=== PATIENT | male | born 1955 | race Hispanic/Latino ===

== ENCOUNTER 2018-02-05 13:34 | Inpatient (IN) | payer MEDICAID, OTHER ==
[2018-02-05 13:54] VITALS: BMI 26.9
--- NOTE | 2018-02-05 15:17 | CT ---
PROCEDURE: CT HEAD WITHOUT CONTRAST. HISTORY: r/o ICH COMPARISON: None available. TECHNIQUE: Axial computed tomography images were obtained through the head/brain without intravenous contrast. Radiation dose: Total exam DLP = 898 mGy-cm. This CT exam was performed using one or more of the following dose reduction techniques: Automated exposure control, adjustment of the mA and/or kV according to patient size, and/or use of iterative reconstruction technique. FINDINGS: HEMORRHAGE: No intracranial hemorrhage. BRAIN: No mass effect or edema. No atrophy or chronic microvascular ischemic changes. VENTRICLES: Unremarkable. No hydrocephalus. CALVARIUM: Unremarkable. PARANASAL SINUSES: Unremarkable as visualized. No significant inflammatory changes. MASTOID AIR CELLS: Unremarkable as visualized. No inflammatory changes. OTHER FINDINGS: None. IMPRESSION: No acute findings
[2018-02-05 15:28] LABS: PH,URINE 6.5 (4.7-8.0); URINE BILIRUBIN NEGATIVE (NEGATIVE); URINE BLOOD NEGATIVE (NEGATIVE); URINE GLUCOSE (UA) NEGATIVE (NEGATIVE); URINE LEUKOCYTE ESTERASE NEGATIVE Leu/uL (NEGATIVE); URINE PROTEIN NEGATIVE mg/dL (<30 mg/dL); URINE UROBILINOGEN 0.2 E.U./dL (<1 E.U./dL)
[2018-02-05 15:31] LABS: BASO # 0.01 K/mm3 (0.0-2.0); BASO % 0.1 % (0.0-3.0); GRAN # 9.98 (1.4-6.5); GRAN % 89.7 % (50.0-68.0); HEMOGLOBIN 13.3 g/dL (14.0-18.0); LYMPH # 0.6 (1.2-3.4); LYMPH % 5.7 % (22.0-35.0); MEAN CELL VOLUME 96.5 fl (80.0-105.0); MEAN CORPUSCULAR HEMOGLOBIN 33.4 pg (25.0-35.0); MEAN CORPUSCULAR HGB CONC 34.6 g/dl (31.0-37.0); MEAN PLATELET VOLUME 8.5 fl (7.0-11.0); MONO # 0.5 (0.1-0.6); MONO % 4.5 % (1.0-6.0); RBC 3.98 10^6/uL (3.5-6.1); RED CELL DISTRIBUTION WIDTH 13.5 % (11.5-14.5); WHITE BLOOD COUNT 11.1 10^3/ul (4.5-11.0)
[2018-02-05 15:35] LABS: URINE APPEARANCE CLEAR (CLEAR); URINE COLOR YELLOW (YELLOW)
[2018-02-05 15:48] LABS: ALB/GLOB RATIO 1.4 (1.1-1.8); ALBUMIN 4.4 g/dL (3.0-4.8); ALT/SGPT 57 U/L (7-56); AST/SGOT 32 U/L (17-59); BLOOD UREA NITROGEN 22 mg/dL (7-21); CALCIUM 9.6 mg/dL (8.4-10.5); GFR AFRICAN-AMERICAN > 60; GFR NON-AFRICAN AMERICAN > 60
--- NOTE | 2018-02-05 15:51 | RAD ---
HISTORY: r/o infiltrate COMPARISON: No prior. FINDINGS: LUNGS: No active pulmonary disease. PLEURA: No significant pleural effusion identified, no pneumothorax apparent. CARDIOVASCULAR: No radiographic findings to suggest acute or significant cardiovascular disease. OSSEOUS STRUCTURES: No significant abnormalities. VISUALIZED UPPER ABDOMEN: Normal. OTHER FINDINGS: None. IMPRESSION: No active disease.
[2018-02-05 16:00] LABS: BARBITURATES, UR NEGATIVE (NEGATIVE); BENZODIAZEPINES, UR POSITIVE (NEGATIVE); OPIATES, UR NEGATIVE (NEGATIVE); PHENCYCLIDINE, UR NEGATIVE (NEGATIVE)
[2018-02-05 16:04] LABS: TROPONIN I < 0.01 ng/mL
[2018-02-05] MEDS ORDERED: Sodium Chloride 0.9% 1,000 ML IV ONE (16:09)
--- NOTE | 2018-02-05 17:48 | ED PDOC ---
Arrival/HPI - General Chief Complaint: Abnormal Skin Integrity Time Seen by Provider: 02/05/18 13:44 Historian: Patient - History of Present Illness Narrative History of Present Illness (Text): 02/05/18 14:45 A 62 year old male presents to the emergency department complaining of right sided facial rash and rash to neck. Patient was sent in by Dr. Miles from her office. Patient has had a rash on back of his neck and right side of face for 5- 6 days. Patient also experiencing dizziness over past couple days. Patient states rash was initially painful to touch, pain has decreased somewhat. Patient reports dizziness increases with movement. Patient denies any shortness of breath, chest pain, fever, changes in vision, abdominal pain or any other complaints at this time. Time/Duration: < week Symptom Onset: Sudden Symptom Course: Unchanged Activities at Onset: Rest Context: Home Past Medical History - Provider Review Nursing Documentation Reviewed: Yes - Infectious Disease Hx of Infectious Diseases: None - Tetanus Immunization Tetanus Immunization: Unknown - Past Medical History Past Medical History: No Previous - Cardiac Hx Cardiac Disorders: No - Pulmonary Hx Respiratory Disorders: No - Neurological Hx Neurological Disorder: No - HEENT Hx HEENT Disorder: No - Renal Hx Renal Disorder: No - Endocrine/Metabolic Hx Endocrine Disorders: No - Hematological/Oncological Hx Blood Disorders: No - Integumentary Hx Dermatological Disorder: No - Musculoskeletal/Rheumatological Hx Musculoskeletal Disorders: No - Gastrointestinal Hx Gastrointestinal Disorders: Yes - Genitourinary/Gynecological Hx Genitourinary Disorders: No - Psychiatric Hx Psychophysiologic Disorder: No Hx Substance Use: No - Past Surgical History Past Surgical History: No Previous - Anesthesia Hx Anesthesia: No - Suicidal Assessment Feels Threatened In Home Enviroment: No Family/Social History - Physician Review Nursing Documentation Reviewed: Yes Family/Social History: No Known Family HX Smoking Status: Never Smoked Hx Alcohol Use: No Hx Substance Use: No Hx Substance Use Treatment: No Allergies/Home Meds Allergies/Adverse Reactions: Allergies No Known Allergies Allergy (Verified 02/05/18 15:43) Home Medications: Home Meds Medication Instructions Recorded Confirmed Diazepam [Valium] 10 mg PO BID 02/05/18 02/05/18 Meclizine [Meclizine*] 25 mg PO TID 02/05/18 02/05/18 Prednisolone [Millipred] 10 mg PO DAILY 02/05/18 02/05/18 amLODIPine [Norvasc] 10 mg PO DAILY 02/05/18 02/05/18 oxyCODONE [oxyCODONE Immediate 5 mg PO Q8 02/05/18 02/05/18 Release Tab] Review of Systems - Physician Review All systems were reviewed & negative as marked: Yes - Review of Systems Constitutional: absent: Fevers Eyes: absent: Vision Changes Respiratory: absent: SOB Cardiovascular: absent: Chest Pain Gastrointestinal: absent: Abdominal Pain Skin: Rash (right sided facial, back of neck) Neurological: Dizziness Physical Exam Vital Signs Reviewed: Yes Vital Signs Temp Pulse Resp BP Pulse Ox 02/05/18 17:00 70 17 156/74 H 98 02/05/18 15:34 64 17 158/72 H 98 02/05/18 13:53 98.1 F 67 18 166/77 H 99 Temperature: Afebrile Blood Pressure: Normal Pulse: Regular Respiratory Rate: Normal Appearance: Positive for: Well-Appearing, Non-Toxic, Comfortable Pain Distress: None Mental Status: Positive for: Alert and Oriented X 3 - Systems Exam Head: Present: Atraumatic, Normocephalic Pupils: Present: PERRL Extroacular Muscles: Present: EOMI Conjunctiva: Present: Normal Mouth: Present: Moist Mucous Membranes Neck: Present: Normal Range of Motion, Lymphadenopathy (b/l) Respiratory/Chest: Present: Clear to Auscultation, Good Air Exchange. No: Respiratory Distress, Accessory Muscle Use Cardiovascular: Present: Regular Rate and Rhythm, Normal S1, S2. No: Murmurs Abdomen: No: Tenderness, Distention, Peritoneal Signs Back: Present: Normal Inspection Upper Extremity: Present: Normal Inspection. No: Cyanosis, Edema Lower Extremity: Present: Normal Inspection. No: Edema Neurological: Present: GCS=15, CN II-XII Intact, Speech Normal Skin: Present: Rashes (papular rash on right occipital and right side of neck; no active drainage) Psychiatric: Present: Alert, Oriented x 3, Normal Insight, Normal Concentration Medical Decision Making ED Course and Treatment: 02/05/18 14:45 Impression: A 62 year old male with right sided facial rash and rash on back of neck. Patient also with dizziness. Plan: -- EKG -- Chest X-ray -- CT head -- labs -- Urinalysis -- Reassess and disposition Prior Visits: Notes and results from previous visits were reviewed. Patient was last seen in the emergency department on 02/27/15 for evaluation of right lower back pain. Progress Notes: EKG: Ordered, reviewed, and independently interpreted the EKG. Rate : 66 BPM Rhythm : NSR Interpretation : normal axis, right bundle branch block 02/05/18 15:19 CT HEAD WITHOUT CONTRAST Creator : Talib Forman MD IMPRESSION: No acute findings. 02/05/18 15:55 Chest X-ray Creator : Steve Dykes MD IMPRESSION: No active disease. 02/05/18 15:[address] Miles, patient will be admitted to her service. Consults ordered as per Dr. Miles. - Lab Interpretations Lab Results: 02/05/18 15:10 02/05/18 15:10 Lab Results 02/05/18 15:10: Urine Opiates Screen Negative, Urine Methadone Screen Negative, Ur Barbiturates Screen Negative, Ur Phencyclidine Scrn Negative, Ur Amphetamines Screen Negative, U Benzodiazepines Scrn Positive, U Oth Cocaine Metabols Negative, U Cannabinoids Screen Negative 02/05/18 15:10: Sodium 141, Potassium 4.3, Chloride 103, Carbon Dioxide 29, Anion Gap 13, BUN 22 H, Creatinine 0.9, Est GFR ( Amer) > 60, Est GFR ( Non-Af Amer) > 60, Random Glucose 132 H, Calcium 9.6, Magnesium 2.0, Total Bilirubin 0.5, AST 32, ALT 57 H, Alkaline Phosphatase 64, Lactate Dehydrogenase 590, Total Creatine Kinase 29 L, Troponin I < 0.01, Total Protein 7.6, Albumin 4.4, Globulin 3.2, Albumin/Globulin Ratio 1.4 02/05/18 15:10: Urine Color Yellow, Urine Appearance Clear, Urine pH 6.5, Ur Specific [place] 1.020, Urine Protein Negative, Urine Glucose (UA) Negative, Urine Ketones Negative, Urine Blood Negative, Urine Nitrate Negative, Urine Bilirubin Negative, Urine Urobilinogen 0.2, Ur Leukocyte Esterase Negative 02/05/18 15:10: WBC 11.1 H, RBC 3.98, Hgb 13.3 L, Hct 38.4 L, MCV 96.5, MCH 33.4 , MCHC 34.6, RDW 13.5, Plt Count 309, MPV 8.5, Gran % 89.7 H, Lymph % (Auto) 5.7 L, [place] % (Auto) 4.5, Eos % (Auto) 0.0 L, Baso % (Auto) 0.1, Gran # 9.98 H, Lymph # (Auto) 0.6 L, [place] # (Auto) 0.5, Eos # (Auto) 0.0, Baso # (Auto) 0.01 I have reviewed the lab results: Yes - RAD Interpretation Radiology Orders: 02/05/18 14:33 HEAD W/O CONTRAST [CT] Stat CHEST PORTABLE [RAD] Stat - EKG Interpretation Interpreted by ED Physician: Yes Type: 12 lead EKG - Medication Orders Current Medication Orders: Amlodipine Besylate (Norvasc) 10 mg PO DAILY HAO Diazepam (Valium) 10 mg PO BID HAO Famotidine (Pepcid) 40 mg PO HS HAO Acyclovir 700 mg/ Sodium (Chloride) 100 mls @ 100 mls/hr IV Q8 HAO PRN Reason: Protocol Meclizine HCl (Antivert) 25 mg PO TID HAO Prednisolone [ (Millipred] 10 Mg) 10 mg PO DAILY HAO Oxycodone HCl (Oxycodone Immediate Release Tab) 5 mg PO Q8 PRN PRN Reason: Pain, moderate (4-7) Zolpidem Tartrate (Ambien) 5 mg PO HS PRN; Protocol PRN Reason: Insomnia Discontinued Medications Sodium Chloride (Sodium Chloride 0.9%) 1,000 mls @ 250 mls/hr IV .Q4H ONE Stop: 02/05/18 20:08 Last Admin: 02/05/18 16:30 Dose: 250 mls/hr eMAR Start Stop Document 02/05/18 16:30 SF (Rec: 02/05/18 16:[address] [facility] [id number]) Intravenous Solution Start Date 02/05/18 Start Time 16:30 End Date 02/05/18 End time 20:30 Total Infusion Time 240 Acyclovir 500 mg/ Sodium (Chloride) 100 mls @ 100 mls/hr IV Q8 HAO PRN Reason: Protocol Oxycodone HCl (Oxycodone Immediate Release Tab) 5 mg PO Q8 HAO - Scribe Statement The provider has reviewed the documentation as recorded by the Beth Monge Provider Scribe Attestation: All medical record entries made by the Scribe were at my direction and personally dictated by me. I have reviewed the chart and agree that the record accurately reflects my personal performance of the history, physical exam, medical decision making, and the department course for this patient. I have also personally directed, reviewed, and agree with the discharge instructions and disposition. Disposition/Present on Arrival - Present on Arrival Any Indicators Present on Arrival: Yes History of DVT/PE: No History of Uncontrolled Diabetes: No Urinary Catheter: No History of Decub. Ulcer: No History Surgical Site Infection Following: None - Disposition Have Diagnosis and Disposition been Completed?: No Diagnosis: Shingles, Vertigo Disposition: HOSPITALIZED Disposition Time: 14:30 Condition: STABLE
--- NOTE | 2018-02-05 19:09 | CARD ---
APPROVED REPORT EKG Measurement Heart [id number] <Conclusion> Normal sinus rhythm Right bundle branch block Voltage criteria for left ventricular hypertrophy Abnormal ECG
[2018-02-05] MEDS ORDERED: Acyclovir 500 MG in Sodium Chloride 0.9% 100 ML IV SCH (22:00)
[2018-02-05] MEDS ORDERED: oxyCODONE 5 mg Immediate Release Tab PO SCH (22:00)
[2018-02-06] MEDS ORDERED: DIAZEPAM 10 MG PO SCH (10:00)
[2018-02-06] MEDS: PrednisoLONE 15 mg/5 ml Oral Syrup (240 ml) PO SCH ×2 (10:16→10:29)
[2018-02-06] MEDS ORDERED: Gadodiamide 287 MG/ML VIAL (15ML) IV ONE (15:06)
--- NOTE | 2018-02-06 16:39 | MRI ---
PROCEDURE: MRI BRAIN WITH AND WITHOUT CONTRAST HISTORY: dizzy COMPARISON: None. TECHNIQUE: Multiplanar, multisequence MR images of the brain were obtained with and without intravenous contrast enhancement. 15 cc of Omniscan FINDINGS: HEMORRHAGE: None DWI: No evidence of an acute or early subacute infarction. BRAIN PARENCHYMA: No mass,mass effect or edema. Minimal microvascular changes ENHANCEMENT: No abnormal intracranial enhancement. VENTRICLES: Unremarkable. No hydrocephalus. CRANIUM: Unremarkable. ORBITS: Grossly unremarkable. PARANASAL SINUSES/MASTOIDS: Clear VASCULAR SYSTEM: Skull base flow voids intact. OTHER FINDINGS: None . IMPRESSION: Unremarkable pre and post contrast enhanced MRI of the brain.
[2018-02-06] MEDS: oxyCODONE 5 mg Immediate Release Tab PO PRN (21:37)
--- NOTE | 2018-02-06 23:32 | CON ---
DATE: HISTORY OF PRESENT ILLNESS: A 62-year-old white male with right facial rash behind the right ear and also on the neck, on the right side of the face and has been complaining of dizziness for the last few days and the rash is painful to touch and difficulty ambulating, feels very disequilibrium. PAST MEDICAL HISTORY: Colitis. ALLERGIES: NO KNOWN DRUG ALLERGY. HOME MEDICATION: Valium, meclizine, Norvasc, and oxycodone. REVIEW OF SYSTEMS: A 10-point review of system was negative except shingle behind the right ear and in the right side of the neck. PHYSICAL EXAMINATION: VITAL SIGNS: Blood pressure 166/77. HEENT: Normocephalic, atraumatic. NECK: Supple. NEUROLOGIC: Alert, awake, and oriented x3. No aphasia. Cranial nerves II through XII were tested. Pupils reactive. EOM intact. Visual field full. No facial asymmetry. Tongue midline. Motor examination, moves all the extremities equally. Toe normal. Deep tendon reflexes 1+. Both plantars are downgoing. Sensory appears intact. Cerebellar: No dysmetria on [id number] or [id number], but the patient's gait is disequilibrium. IMPRESSION AND PLAN: 1. Dizziness and vertigo, and the patient was recently seen by ENT and we will order the MRI of the head. 2. Shingles disequilibrium syndrome and we will do the MRI of the head with and without and continue present management. Continue meclizine. We will follow up. Ever Whitaker MD
--- NOTE | 2018-02-07 05:11 | CON ---
DATE: 02/06/2018 LOCATION: Patient is seen early this morning in 272, bed 2. CHIEF COMPLAINT: Dizziness for 3 days and a right facial rash times several days. HISTORY OF PRESENT ILLNESS: This is a 62-year-old male with hypertension and ulcerative colitis, on prednisone. The prednisone was discontinued 3 months ago and developed dizziness and now the rash on the right side of his face and right side of his neck. He was diagnosed with herpes zoster and admitted to the hospital. REVIEW OF SYSTEMS: Reveals the patient denies any fever. He is having headaches on and off with dizziness. No chest pain, shortness of breath. No abdominal pain, diarrhea, or constipation. No bright red blood per rectum. No melena. No blurred vision. No change in sense of smell. No hearing loss. He was seen in the emergency room by Dr. Poe who states the patient is complaining of rash. He has no other complaints actually. Not having any headaches at this time. He did have headaches earlier, which has resolved. However, he is complaining of dizziness. PAST MEDICAL HISTORY: Significant for hypertension, ulcerative colitis. PAST SURGICAL HISTORY: Noncontributory. ALLERGIES: THE PATIENT HAS NO KNOWN ALLERGIES. MEDICATIONS AT HOME: Include prednisolone, meclizine, amlodipine, diazepam, oxycodone. PHYSICAL EXAMINATION: GENERAL: Patient is in bed. VITAL SIGNS: Temperature of 98 and the blood pressure is 150/70, respiratory rate of 18 to 20, pulse of 86. HEENT: Examination of HEENT is unremarkable except for the rash that is on right side of the lower part of his face and neck. It does not involve his nose or his eardrum and it involves the lower part of his face and most of his neck on the right side. LUNGS: Clear to auscultation. HEART: Normal S1 and S2. ABDOMEN: Soft, nontender. LABORATORY EXAMINATION: Reveals a white count of 11,100, hemoglobin of 13, platelets of 309, 89% granulocytosis. Chemistries reveals a BUN of 22, creatinine of 0.9. ALT of 67. Patient had an MRI of the head, which was negative. CAT scan of the head, which was negative. Chest x-ray, which was negative. ASSESSMENT AND PLAN: A 62-year-old male with hypertension, ulcerative colitis with, 1. Herpes zoster with right facial and right neck herpes zoster. We will treat the patient with acyclovir and we will check on a human immunodeficiency virus. We will do a hepatitis profile since there is a mild elevation of the ALT and we will make further recommendations upon availability of initial results. We will follow with you. Cody Falcon MD
[2018-02-07] MEDS: oxyCODONE 5 mg Immediate Release Tab PO PRN ×2 (06:05→21:40)
[2018-02-07 07:09] LABS: HEMOGLOBIN 13.7 g/dL (14.0-18.0); MEAN CELL VOLUME 94.9 fl (80.0-105.0); MEAN CORPUSCULAR HGB CONC 34.8 g/dl (31.0-37.0); MEAN PLATELET VOLUME 8.3 fl (7.0-11.0); RBC 4.15 10^6/uL (3.5-6.1); RED CELL DISTRIBUTION WIDTH 13.4 % (11.5-14.5); WHITE BLOOD COUNT 7.9 10^3/ul (4.5-11.0)
[2018-02-07 07:16] LABS: IRON 60 ug/dL (45-180)
[2018-02-07 07:26] LABS: % IRON SATURATION 17 % (20-55); TOTAL IRON BINDING CAPACITY 355 ug/dL (261-462)
[2018-02-07 07:28] LABS: LDL CHOLESTEROL 105 mg/dL (0-129)
[2018-02-07 07:47] LABS: BLOOD UREA NITROGEN 16 mg/dL (7-21); CALCIUM 9.1 mg/dL (8.4-10.5); GFR AFRICAN-AMERICAN > 60; GFR NON-AFRICAN AMERICAN > 60; HDL CHOLESTEROL 28 mg/dL (29-60)
--- NOTE | 2018-02-07 09:47 | PN ---
DATE: 02/07/2018 SUBJECTIVE: The patient is in bed in no acute distress, was seen earlier today in room 272, bed 2. He states his dizziness is much improved and his rashes also improved. PHYSICAL EXAMINATION: VITAL SIGNS: Temperature is 98, blood pressure is 120/80, respiratory rate of 20, heart rate of 76. HEENT: Unremarkable. The rashes greatly improved, still a few active lesions. NECK: Supple. LUNGS: Have decreased breath sounds. HEART: Normal S1 and S2. ABDOMEN: Soft, nontender. LABORATORY EXAMINATION: Reveals a white count of 7.9, hemoglobin of 13, platelets of 303. BUN of 16, creatinine of 1. The patient had MRI of the head, which is reported to be negative. ASSESSMENT AND PLAN: This is a 62-year-old male who is admitted now with herpes zoster with right facial, right neck herpes zoster, which is actually greatly improved today and the patient with hypertension, ulcerative colitis. Prednisone was discontinued 3 months ago and on acyclovir, maybe able to switch to p.o. acyclovir in next 24 hours if it continues to improve at this rate. We will check on the hepatitis profile, HIV test and we will follow with you. Cody Falcon MD
--- NOTE | 2018-02-07 09:52 | HP ---
CHIEF COMPLAINT: Dizziness, feeling of passing out, rash on the neck. HISTORY OF PRESENT ILLNESS: Mr. Miller Ceja is a 62-year-old male who came to the Emergency Department complaining of right-sided facial and neck rash. Patient was seen by me in my office with persistent Dizziness and one spot of rash of the neck, right side of the face, actually started a couple of days ago and distribution looks like zoster. Patient also had experience of dizziness over the past couple of days, even his dizziness has started before the rash. The rash is painful to touch , His dizziness increased with movement. Patient is so dizzy that he has feeling of passing out. Denies any shortness of breath, chest pain, fever, chills. No vision changes, sometime he is feeling that dizziness becomes he will pass away problem. No abdominal pain. PAST MEDICAL HISTORY: Colitis; history of anemia, status post blood transfusion. ALLERGIES: PATIENT IS NOT ALLERGIC WITH ANY MEDICATIONS. HOME MEDICATIONS: Valium, meclizine, prednisone, Norvasc, oxycodone. REVIEW OF SYSTEMS: Patient is seen and examined at the bedside. He is on contact isolation, complaining about itchiness and pain in the right side of the neck and moving toward the face also. Still feeling bad and dizzy and headache. No shortness of breath. There are no vision changes. No fever. No chills. No abdominal pain. No hematuria. No hematochezia. PHYSICAL EXAMINATION: VITAL SIGNS: Temperature 98.7, pulse 72, blood pressure 148/94, respiratory rate 18. HEENT: Head: Normocephalic, atraumatic. Eyes: PERRLA. Extraocular movements are intact. Conjunctivae clear. Nose patent. Mucous membranes moist. NECK: Supple. No carotid bruits, JVD or thyromegaly. CHEST: Bilaterally symmetrical. HEART: S1 and S2 positive. LUNGS: Clear to auscultation. ABDOMEN: Soft. Bowel sounds are present. No organomegaly. EXTREMITIES: No edema. No cyanosis. NEUROLOGIC: The patient is awake and alert. Moving all four extremities, but is feeling dizzy. SKIN: Rash on the right side of the neck and is coming on the front also. Has group of vesicles at different stages. LABORATORY DATA: White blood cell 11.1, hemoglobin 13.2, hematocrit 38.5, platelets 309. Sodium 141, potassium 4.3, BUN 22, creatinine 0.9, glucose 132, AST 57. ASSESSMENT AND PLAN: Mr. Miller Ceja is a 62-year-old male with leukocytosis, anemia, hyperglycemia, abnormal liver function test. Drug screening is negative. Did CAT scan of the head and MRI of the brain, unremarkable pre and post contrast enhanced MRI of the brain. CAT scan of the head was done also, reviewed by me. Patient has zoster, is started on acyclovir antiviral, approved by Dr. Jono Johnson, [place] Ambien because of insomnia, Antivert for dizziness, amlodipine for hypertension, Pepcid for gastrointestinal prophylaxis. Patient is getting prednisolone for his colitis for long time, anxiety problem. Discussion done with patient. Gastrointestinal and deep venous thrombosis prophylaxis. Repeat labs. We will follow up. Saira Miles MD [place]
[2018-02-07] MEDS: PrednisoLONE 15 mg/5 ml Oral Syrup (240 ml) PO SCH ×2 (11:18→11:26)
[2018-02-07 13:03] LABS: HEPATITIS B SURFACE AG Negative (NEGATIVE)
[2018-02-07 13:09] LABS: HEPATITIS A IGM NEGATIVE (NEGATIVE); HEPATITIS B CORE AB NEGATIVE (NEGATIVE)
[2018-02-07 13:21] LABS: HEPATITIS C ANTIBODY NEGATIVE (NEGATIVE)
[2018-02-07 13:46] LABS: FOLATE 13.7 ng/mL
--- NOTE | 2018-02-07 17:16 | CP.PCM.CON ---
History of Present Illness - History of Present Illness History of Present Illness: pt seen and examined with agreement. The patient was admitted to [facility] for Dizziness. The patient was recently seen at the [facility] ER for dizziness and lymphadenopathy. He was then referred from the ER to an ENT in [place]. The patient was treated with Prednisone 40mg daily (pt was only able to tolerate 2 days of treatment secondary to side effects). The Patient then came to [facility] ER for inc dizziness and rash outbreak-painful right face/cheek/ear and chest. Pt has been given Acyclovir as an in patient and feels the dizziness has improved. The patient denies hearing loss or tinnitus. He denies prior hx or family hx of hearing loss/dizziness. The patient take mercaptopurine daily for IBS. Review of Systems - Constitutional Constitutional: As Per HPI - EENT Eyes: As Per HPI Ears: As Per HPI Nose/Mouth/Throat: As Per HPI - Cardiovascular Cardiovascular: As Per HPI - Respiratory Respiratory: As Per HPI - Gastrointestinal Gastrointestinal: As Per HPI - Reproductive: Male Reproductive:Male: As Per HPI - Musculoskeletal Musculoskeletal: As Per HPI - Integumentary Integumentary: As Per HPI - Neurological Neurological: As Per HPI - Psychiatric Psychiatric: As Per HPI - Endocrine Endocrine: As Per HPI - Hematologic/Lymphatic Hematologic: As Per HPI Past Patient History - Infectious Disease Hx of Infectious Diseases: None - Tetanus Immunizations Tetanus Immunization: Unknown - Past Social History Smoking Status: Never Smoked - CARDIAC Hx Cardiac Disorders: No - PULMONARY Hx Respiratory Disorders: No - NEUROLOGICAL Hx Neurological Disorder: No - HEENT Hx HEENT Problems: No - RENAL Hx Chronic Kidney Disease: No - ENDOCRINE/METABOLIC Hx Endocrine Disorders: No - HEMATOLOGICAL/ONCOLOGICAL Hx Blood Disorders: No - INTEGUMENTARY Hx Dermatological Problems: No - MUSCULOSKELETAL/RHEUMATOLOGICAL Hx Musculoskeletal Disorders: No - GASTROINTESTINAL Hx Gastrointestinal Disorders: Yes - GENITOURINARY/GYNECOLOGICAL Hx Genitourinary Disorders: No - PSYCHIATRIC Hx Psychophysiologic Disorder: No Hx Substance Use: No - SURGICAL HISTORY Hx Surgeries: No - ANESTHESIA Hx Anesthesia: No Meds Allergies/Adverse Reactions: Allergies Allergy/AdvReac Type Severity Reaction Status Date / Time No Known Allergies Allergy Verified 02/05/18 15:43 - Medications Medications: Current Medications Amlodipine Besylate (Norvasc) 10 mg PO DAILY HAO Last Admin: 02/07/18 11:17 Dose: 10 mg Diazepam (Valium) 10 mg PO BID [facility] Last Admin: 02/07/18 11:17 Dose: 10 mg Famotidine (Pepcid) 40 mg PO HS [facility] Last Admin: 02/06/18 21:33 Dose: Not Given Acyclovir 700 mg/ Sodium (Chloride) 100 mls @ 100 mls/hr IV Q8 HAO PRN Reason: Protocol Last Admin: 02/07/18 16:10 Dose: 100 mls/hr Meclizine HCl (Antivert) 25 mg PO TID [facility] Last Admin: 02/07/18 16:10 Dose: 25 mg Oxycodone HCl (Oxycodone Immediate Release Tab) 5 mg PO Q8 PRN PRN Reason: Pain, moderate (4-7) Last Admin: 02/07/18 06:05 Dose: 5 mg Prednisolone (Prednisolone Oral Soln) 10 mg PO DAILY [facility] Last Admin: 02/07/18 11:26 Dose: Not Given Zolpidem Tartrate (Ambien) 5 mg PO HS PRN; Protocol PRN Reason: Insomnia Last Admin: 02/06/18 22:07 Dose: 5 mg Physical Exam - Constitutional Appears: Well, Non-toxic - Head Exam Head Exam: ATRAUMATIC Additional comments: macular crusted over erythematous rash extending from post scalp around and involving ear/mastoid region with extension submental and right neck and chest - Eye Exam Eye Exam: EOMI, Normal appearance, PERRL Pupil Exam: NORMAL ACCOMODATION, PERRL Additional comments: nystagmus noted with extreme left gaze - ENT Exam ENT Exam: Mucous Membranes Moist, Normal Exam Additional comments: finger rub heard less from right ear than left ear (decreased hearing right) Ears: wnl Nose: mild crusting throat : mucus membranes moist no lesions/masses neck : rash as described in head exam - Neck Exam Neck exam: Positive for: Tenderness Additional comments: rash as described in head exam - Respiratory Exam Respiratory Exam: NORMAL BREATHING PATTERN - Extremities Exam Extremities exam: Positive for: normal inspection - Neurological Exam Additional comments: nystagmus with extreme gaze left. House-Brachman 1/6 bilaterally normal - Psychiatric Exam Psychiatric exam: Normal Affect, Normal Mood - Skin Additional comments: rash as described in head exam Results - Vital Signs Recent Vital Signs: Last Vital Signs Temp 98.4 F 02/07/18 11:39 Pulse 77 02/07/18 11:39 Resp 18 02/07/18 11:39 BP 150/89 02/07/18 11:39 Pulse Ox 98 02/07/18 06:00 - Labs Result Diagrams: 02/07/18 06:00 02/07/18 06:00 Labs: Laboratory Results - last 24 hr 02/07/18 02/07/18 02/07/18 06:00 06:00 06:00 WBC RBC Hgb Hct MCV MCH MCHC RDW Plt Count MPV Sodium 137 Potassium 4.1 Chloride 100 Carbon Dioxide 28 Anion Gap 14 BUN 16 Creatinine 1.0 Est GFR ( Amer) > 60 Est GFR (Non-Af Amer) > 60 Random Glucose 90 Hemoglobin A1c Calcium 9.1 Iron 60 TIBC 355 % Saturation 17 L Triglycerides 114 Cholesterol 156 LDL Cholesterol Direct 105 HDL Cholesterol 28 L Vitamin B12 > 1000 H Folate 13.7 TSH 3rd Generation Hepatitis A IgM Ab Negative Hep Bs Antigen Negative Hep B Core IgM Ab Negative Hepatitis C Antibody Negative 02/07/18 02/07/18 02/07/18 06:00 06:00 06:00 WBC 7.9 D RBC 4.15 Hgb 13.7 L Hct 39.4 L MCV 94.9 MCH 33.0 MCHC 34.8 RDW 13.4 Plt Count 303 MPV 8.3 Sodium Potassium Chloride Carbon Dioxide Anion Gap BUN Creatinine Est GFR ( Amer) Est GFR (Non-Af Amer) Random Glucose Hemoglobin A1c 4.9 Calcium Iron TIBC % Saturation Triglycerides Cholesterol LDL Cholesterol Direct HDL Cholesterol Vitamin B12 Folate TSH 3rd Generation 1.77 Hepatitis A IgM Ab Hep Bs Antigen Hep B Core IgM Ab Hepatitis C Antibody Assessment & Plan (1) Asymmetrical right sensorineural hearing loss Status: Acute (2) Shingles Status: Acute (3) Vertigo Status: Acute (4) Labyrinthine dysfunction, right ear Status: Acute - Assessment and Plan (Free Text) Plan: continue symptomatic care, acyclovir. Pt refuses steroid treatment for both dizziness and hearing loss. consider antivert/valium if needed for dizziness.
--- NOTE | 2018-02-08 03:51 | PN ---
DATE: 02/07/2018 SUBJECTIVE: The patient is a 62-year-old male. The patient is seen and examined on the bedside, sitting on isolation and having full fledged zoster rash on the right side of the neck and the right side of the face, having pain and itchiness. Still dizzy, but a little bit better. No nausea or vomiting. No fever, no chills. No hematuria or hematochezia. PHYSICAL EXAMINATION: VITAL SIGNS: Temperature 99, pulse 68, respiratory rate 18, blood pressure 147/89. HEENT: Head normocephalic, atraumatic. Eyes PERRLA. Extraocular muscles intact. Conjunctivae clear. Nose patent. Mucous membrane moist. NECK: Supple. No carotid bruit, but having rash on the right side of the neck and right side of the face. CHEST: Clear to auscultation. HEART: S1 and S2 positive. ABDOMEN: Soft. Bowel sounds positive. No organomegaly. EXTREMITIES: No edema. No cyanosis. NEUROLOGIC: The patient is awake and alert. Moving all 4 extremities. No focal deficits. MEDICATIONS: Acyclovir, Ambien, Antivert, amlodipine, oxycodone, Pepcid, prednisone, Valium. LABORATORY DATA: White blood cell 7.9, hemoglobin 13.7, hematocrit 39.4, platelets 303. Sodium 137, potassium 4.1, BUN 16, creatinine 1, glucose 90, hemoglobin A1c 4.9, iron 17, AST 54. ASSESSMENT AND PLAN: Mr. Miller Ceja is a 62-year-old male with anemia,, iron deficiency, abnormal liver function test. He has hepatitis serology negative, has herpes zoster with the right facial and right neck lesion that is getting better, but still we have full-fledge rash. He has hypertension and ulcerative colitis, irritable bowel syndrome, getting acyclovir. According to Infectious Disease, we will continue present treatment. HIV test will be followed up. I appreciated Dr. Falcon's input and Dr. Malachi Chand, ENT input also. The patient was admitted for severe dizziness that is improving a little bit. Recent history of lymphadenopathy. The patient was seen at [facility] ER for dizziness and was referred to ENT in the [place]. The patient was treated with prednisone loading dose, but according to the patient, he cannot tolerate that prednisone and after that, the patient came in to my office and after seen rash and his dizziness, I sent him to [facility] Emergency Room. Now, he has outbreak at right facial, neck, ear and chest zoster. The patient denies hearing loss or tinnitus or any prior history of hearing loss or dizziness. This patient used to had mercaptopurine daily for irritable bowel syndrome. The patient is still under isolation. He has asymptomatic right sensorineural hearing loss. ENT is on the case. Labyrinthine dysfunctional right ear, continue symptomatic care, acyclovir treatment for both dizziness and hearing loss. We will continue Antivert and Valium for dizziness and we will follow up. Saira Miles MD MTDD
[2018-02-08 08:09] LABS: BLOOD UREA NITROGEN 19 mg/dL (7-21); CALCIUM 8.8 mg/dL (8.4-10.5); GFR AFRICAN-AMERICAN > 60; GFR NON-AFRICAN AMERICAN > 60
[2018-02-08 08:29] LABS: HEMOGLOBIN 13.6 g/dL (14.0-18.0); MEAN CELL VOLUME 96.3 fl (80.0-105.0); MEAN CORPUSCULAR HEMOGLOBIN 33.7 pg (25.0-35.0); MEAN CORPUSCULAR HGB CONC 35.1 g/dl (31.0-37.0); MEAN PLATELET VOLUME 8.3 fl (7.0-11.0); RBC 4.03 10^6/uL (3.5-6.1); RED CELL DISTRIBUTION WIDTH 13.2 % (11.5-14.5)
--- NOTE | 2018-02-08 14:20 | PN ---
DATE: 02/08/2018 SUBJECTIVE: The patient is seen earlier today in 272, bed 2. The patient is awake and alert. He states his dizziness is somewhat improved; however, he has still significant dizziness. No nausea or vomiting. No abdominal pain or diarrhea. PHYSICAL EXAMINATION: VITAL SIGNS: Temperature is 98, blood pressure is 149/70, respiratory rate of 18, heart rate of 77. HEENT: Unremarkable. NECK: Supple. LUNGS: Decreased breath sounds. HEART: Normal S1 and S2. ABDOMEN: Soft, nontender. LABORATORY EXAMINATION: Reveals a white count of 8000, hemoglobin of 13, and platelets of 292. Chemistries reveal a BUN of 19, creatinine of 1.1. Urinalysis is noted. HIV is negative. Dr. Malachi Chand's note is reviewed from yesterday. Dr. Miles's progress note from yesterday was reviewed. ASSESSMENT AND PLAN: This is a 62-year-old male who was admitted with herpes zoster, right facial and right neck herpes zoster, now it is improving today, history of hypertension, ulcerative colitis. The patient has discontinued the steroids 3 months ago, he does not want any steroids. He contributes the infection to the steroid use in the past and apparently on IV acyclovir, tolerating it well and continue present course and follow clinically regarding his dizziness. Cody Falcon MD
--- NOTE | 2018-02-09 02:47 | PN ---
DATE: 02/08/2018 SUBJECTIVE: Patient is 62-year-old male. Patient is seen and examined at the bedside, still is on isolation. He is awake, and alert. His dizziness is somewhat improved; however, he is still dizzy. No nausea, vomiting. No fever, no chills. No hematuria, no hematochezia. PHYSICAL EXAMINATION: VITAL SIGNS: Temperature 98, blood pressure 149/70, respiratory rate 18, heart rate 77. HEENT: Head normocephalic, atraumatic. Eyes PERRLA. Extraocular muscles intact. Conjunctivae clear. Nose patent. Mucous membrane moist. NECK: Supple. No carotid bruit, JVD, thyromegaly. CHEST: Bilaterally symmetrical. HEART: S1 and S2 positive. LUNGS: Clear to auscultation. ABDOMEN: Soft. Bowel sounds present. No organomegaly. EXTREMITIES: No edema. No cyanosis. NEUROLOGIC: The patient is awake and alert. Moving all 4 extremities. No focal deficits. MEDICATIONS: Acyclovir, Ambien, Antivert, Norvasc, oxycodone, Pepcid, Valium. LABORATORY DATA: White blood cells 8, hemoglobin 13.6, hematocrit 38.8, platelet 294. Sodium 141, potassium 5, BUN 19, creatinine 1.1, glucose 88, iron saturation 17. ASSESSMENT AND PLAN: Mr. Miller Ceja is a 62-year-old male with history of leukocytosis, anemia, iron deficiency; has herpes zoster, right facial and right neck area, improving but slowly; history of hypertension; ulcerative colitis. Patient does not want steroids. He does not want Valium. Now getting IV acyclovir, tolerating it very well. History of anemia. ID is on the case. We will continue antibiotics and will follow up. Seen by Dr. Malachi Chand; appreciated his input. Patient has asymmetrical right sensorineural hearing loss, labyrinthine dysfunction, right ear. According to ENT, continue Antivert. Gastrointestinal, deep vein thrombosis prophylaxis. Repeat labs. We will follow up. Saira Miles MD
--- NOTE | 2018-02-09 13:07 | PN ---
DATE: 02/09/2018 SUBJECTIVE: The patient is in bed, in no acute distress, nontoxic. He is doing much better. His dizziness is much improved. PHYSICAL EXAMINATION: VITAL SIGNS: Temperature is 98, blood pressure is 129/70, respiratory rate of 18. HEENT: Unremarkable. NECK: Supple. LUNGS: Decreased breath sounds. HEART: Normal S1, S2. ABDOMEN: Soft, nontender. No rebound. No guarding. No masses. NECK: The patient is much improved, the lesions are becoming dry. LABORATORY DATA: Reveals white count of 8, hemoglobin of 13. Chemistries are noted. BUN of 19, creatinine of 1.1. Urinalysis is noted. Serology is negative. Dr. Miles's note from yesterday is reviewed. Review of orders reveals the patient to be on IV acyclovir. ASSESSMENT AND PLAN: This is a 62-year-old male, who has admitted here with right face, right neck herpes zoster, dizziness, which is improving. The zoster rash is also resolving and the patient with a history of hypertension, ulcerative colitis. The patient was on steroids which was discontinued 3 months ago. He does not want any steroids and his dizziness is greatly improved. The patient also has asymmetric right [id number] neural hearing loss. We will do fluorescent treponemal antibody and rapid plasma reagin on patients on acyclovir IV, today is day #5, may be able to switch to p.o. Famvir or p.o. Valtrex to complete 7 to 10 days within the next 24 hours, may be able to switch to p.o. acyclovir or p.o. Famvir or p.o. Valtrex, follow up with fluorescent treponemal antibody and rapid plasma reagin results because of the hearing loss and most likely can discontinue the isolation in the next 24 hours and switch to p.o. antiviral therapy. Cody Falcon MD
[2018-02-09] MEDS ORDERED: Iron Sucrose 100 mg/5 ml Inj IVP ONE (20:58)
--- NOTE | 2018-02-10 02:26 | PN ---
DATE: 02/09/2018 SUBJECTIVE: Patient is 62-year-old male. Patient is seen and examined at the bedside. Still having rash on the right side of the neck and face. In no acute distress. Dizziness is still there, but doing better. no chest pain. No fever, no chills. No hematuria, no hematochezia. PHYSICAL EXAMINATION: VITAL SIGNS: Temperature is 98, blood pressure is 129/70, respiratory rate of 18. HEENT: Head normocephalic, atraumatic. Eyes PERRLA. Extraocular muscles intact. Conjunctivae clear. NECK: Supple. No carotid bruit, no JVD, or thyromegaly. LUNGS: Have decreased breath sounds. HEART: S1, S2 positive. ABDOMEN: Soft, nontender. No organomegaly. EXTREMITIES: No edema. No cyanosis. NEUROLOGIC: Patient is awake and alert. Moving all 4 extremities. No focal deficits. Obeying simple order. SKIN: Neck is much improved, but still there is plenty of wet lesions. MEDICATIONS: Acyclovir, Ambien, Antivert, Norvasc, oxycodone, Pepcid. Valium not given, patient refused. LABORATORY DATA: White blood cells 8, hemoglobin 13.6, hematocrit 38.8, platelet 294. Sodium 141, potassium 5, BUN 19, creatinine 1.1, glucose 88. ASSESSMENT AND PLAN: Mr. Miller Ceja is 62-year-old male with iron deficiency anemia, will replace iron. Came with intractable dizziness like feeling of passing out. Came with right face and right neck herpes zoster. Zoster rash is resolving very slowly, but still has a plenty of wet rashes. Has hypertension, ulcerative colitis. Patient was taking steroids that was discontinued three months ago. Placed on steroid, no Antivert and no valium. Patient also has asymmetric right sensorineural hearing loss, ENT is on the case. Dr. Falcon will do fluorescent treponemal antibody and rapid plasma reagin on the patient on acyclovir, today is day #5. Length of time discussion done with Dr. Falcon, history of blood transfusion, history of GI bleeding, repeat labs. We will follow up. Saira Miles MD [facility] # [id number] MTDIrlanda
--- NOTE | 2018-02-10 20:24 | CP.PCM.PN ---
Subjective - Date & Time of Evaluation Date of Evaluation: 02/10/18 Time of Evaluation: 14:40 - Subjective Subjective: Still with pain on the right side of face, lesions are drying up, no fevers. Objective - Vital Signs/Intake and Output Vital Signs (last 24 hours): Temp Pulse Resp BP Pulse Ox 98 F 68 20 141/81 98 02/10/18 12:00 02/10/18 12:00 02/10/18 12:00 02/10/18 18:30 02/10/18 06:00 Intake and Output: 02/10/18 02/11/18 18:59 06:59 Intake Total 720 Balance 720 - Medications Medications: Current Medications Amlodipine Besylate (Norvasc) 10 mg PO DAILY [facility] Last Admin: 02/10/18 10:14 Dose: 10 mg Diazepam (Valium) 10 mg PO BID [facility] Last Admin: 02/10/18 17:03 Dose: Not Given Famotidine (Pepcid) 40 mg PO HS [facility] Last Admin: 02/09/18 22:24 Dose: 40 mg Acyclovir 700 mg/ Sodium (Chloride) 100 mls @ 100 mls/hr IV Q8 [facility] PRN Reason: Protocol Last Admin: 02/10/18 13:47 Dose: 100 mls/hr Meclizine HCl (Antivert) 25 mg PO TID [facility] Last Admin: 02/10/18 17:03 Dose: 25 mg Oxycodone HCl (Oxycodone Immediate Release Tab) 5 mg PO Q8 PRN PRN Reason: Pain, moderate (4-7) Last Admin: 02/07/18 21:40 Dose: 5 mg Zolpidem Tartrate (Ambien) 5 mg PO HS PRN; Protocol PRN Reason: Insomnia Last Admin: 02/09/18 22:37 Dose: 5 mg - Labs Labs: 02/08/18 07:00 02/08/18 07:00 - Constitutional Appears: Non-toxic, Chronically Ill - Head Exam Head Exam: NORMAL INSPECTION - ENT Exam ENT Exam: Mucous Membranes Moist Additional comments: right side of neck and face with drying lesions - Neck Exam Neck Exam: absent: Meningismus - Respiratory Exam Respiratory Exam: Decreased Breath Sounds. absent: Rales - Cardiovascular Exam Cardiovascular Exam: +S1, +S2 - GI/Abdominal Exam GI & Abdominal Exam: Soft. absent: Tenderness Assessment and Plan - Assessment and Plan (Free Text) Plan: Assessment Right sided facial herpes zoster HTN ulcerative colitis Plan Continue Acyclovir day 4 to complete 7-10 days of therapy follow up RPR and FTA-ABS
--- NOTE | 2018-02-11 09:04 | PN ---
DATE: 02/10/2018 SUBJECTIVE: The patient is a 62 -year-old male. Patient was seen and examined at the bedside on 02/10/2018 in the telemetry. Still having pain on the right side of the face. Lesions are getting drying up. No fever, no chills. But, still dizzy even dizzy is getting better and headache. ENT and Neurologist is on the case. We will get their opinion again. PHYSICAL EXAMINATION: VITAL SIGNS: Temperature 98, heart rate 68, respiratory rate 20, blood pressure 140/81, pulse oximetry is 98% on room air. HEENT: Head, normocephalic and atraumatic. Eyes PERRLA. Extraocular muscles intact. Conjunctivae clear. Nose patent. Mucous membrane moist. NECK: Supple. No carotid bruit, JVD, or thyromegaly. CHEST: Bilaterally symmetrical. HEART: S1 and S2 positive. LUNGS: Clear to auscultation. ABDOMEN: Soft. Bowel sounds present. No organomegaly. EXTREMITIES: No edema. No cyanosis. NEUROLOGIC: Patient is awake, alert. Moving all four extremities. No focal deficit. LABORATORY DATA: White blood cells 8.0, hemoglobin 13.6, hematocrit 38.8, platelets 294. Sodium 141, potassium 5, BUN 19, creatinine 1.1 and glucose 92. ASSESSMENT AND PLAN: Mr. Ceja is a 62-year-old male with anemia; right-sided facial herpes zoster, hypertension, ulcerative colitis, seizure disorder, altered mental status. Continue acyclovir, day #4, will complete 7 to 10. Followup RPR , Gastrointestinal and deep vein thrombosis prophylaxis. We will follow up. Saira Miles MD KERRY
--- NOTE | 2018-02-11 09:15 | US ---
PROCEDURE: Bilateral carotid artery duplex ultrasound HISTORY: Carotid stenosis TIA PHYSICIAN(S): Alireza Rice MD. TECHNIQUE: Duplex sonography and color-flow Doppler were used to evaluate the carotid bifurcations and limited segments of the vertebral arteries bilaterally. FINDINGS: There is moderate smooth diffuse heterogeneous plaque noted at the carotid bifurcations bilaterally. The peak systolic velocity in the proximal right internal carotid artery is 142 cm/sec. This corresponds to a 40-59 percent proximal right ICA stenosis. Normal systolic velocities are noted in the proximal right external carotid artery. There is antegrade flow in the right vertebral artery. The peak systolic velocity in the proximal left internal carotid artery is 151 cm/sec. This corresponds to a 60-79 percent proximal left ICA stenosis. Normal systolic velocities are noted in the proximal left external carotid artery. There is antegrade flow in the left vertebral artery. IMPRESSION: 1. 60-79 percent proximal left ICA stenosis 2. 40-59 percent proximal right ICA stenosis 3. Antegrade flow in both vertebral arteries. The left vertebral artery is dominant
--- NOTE | 2018-02-11 19:03 | PN ---
DATE: 02/11/2018 NEUROLOGY FOLLOWUP CHIEF COMPLAINT: Followup for dizziness. SUBJECTIVE: The patient is seen and examined at bedside. He is slightly off balance, but otherwise he states that he is constantly dizziness in terms of lightheaded rather than spinning sensation of the room. Currently, his right-sided herpes zoster rash is improving. He is on acyclovir. Currently, his blood pressures are stable. His carotid Doppler did show evidence of carotid artery disease, especially 60-79% in the left ICA and 40-59% in the proximal right ICA. He does not take a baby aspirin. His MRI of the brain initially showed no acute intracranial abnormalities. He was seen also by ENT. PAST MEDICAL HISTORY: History of ulcerative colitis, hypertension, recent right-sided herpes zoster on the face. REVIEW OF SYSTEMS: Fourteen-point review of systems negative except as per the HPI. ALLERGIES: NO KNOWN DRUG ALLERGIES. MEDICATIONS: Reviewed by nurse reconciliation sheet. SOCIAL HISTORY: No illicit drug use, smoking or EtOH abuse. PHYSICAL EXAMINATION: VITAL SIGNS: Temperature 98.7, pulse rate of 70, blood pressure 148/78, respiratory rate of 20, oxygen saturation 99% by room air. GENERAL: The patient is sitting up in bed, in no acute distress. HEENT: Atraumatic, normocephalic. PERRLA. Extraocular muscles intact. NECK: Supple. No JVD. No adenopathy noted. LUNGS: Clear to auscultation. No adventitious sounds. HEART: S1, S2. Normal rate and rhythm. No murmurs, rubs or gallops. ABDOMEN: Soft, nontender and nondistended. Bowel sounds are present. EXTREMITIES: No clubbing. No cyanosis. Peripheral pulses 2+ felt bilaterally. NEUROLOGIC: The patient is alert and oriented to person, place, month and year. Speech is fluent without any errors. Cranial nerves II through XII are intact. Has a right-sided facial herpes zoster rash. Motor exam: Moves all extremities equally. No pronator drift seen. Sensory exam: Light touch, pinprick, proprioception and vibration are intact. DTRs are 2+ throughout. Coordination: [id number]-[id number] intact. No dysmetria noted. Gait is slightly wide based. Romberg is negative. LABORATORY DATA: B12 is more than 100. Sodium is 141, potassium 5, chloride of 101, carbon dioxide of 31, BUN of 19, creatinine 1.1, random glucose of 92. ASSESSMENT AND PLAN: This is a 62-year-old man, history of hypertension, ulcerative colitis, presented with dizziness as well as right-sided facial rash, which was found to be right-sided facial herpes zoster, which he is on acyclovir. His carotid Doppler showed 60-79% left internal carotid artery stenosis and 40-59% proximal right internal carotid artery stenosis. MRI of the brain was unremarkable. At this time, I feel like his dizziness is multifactorial secondary to herpes zoster disequilibrium syndrome in addition to mild slight hypertensive urgency, superimposed underlying carotid artery disease. At this time, we will recommend, 1. Him to be on aspirin 81 and Lipitor 40 mg for carotid artery disease and medical management for now. 2. Orthostatic vital signs. 3. Avoid certain movements and salt restriction in diet and continue with p.r.n. meclizine at acute onset of dizziness. At this time, continue current present medical management. He is clinically stable. Len Whitaker MD
--- NOTE | 2018-02-12 01:53 | PN ---
DATE: 02/11/2018 This is a 62-year-old male. LOCATION: Room #575, bed 2. This is an ENT followup regarding the dizziness. SUBJECTIVE: Patient was seen and examined at the bedside. Still states some off balance with ambulation,but states that he seems to be getting a little bit better. He denies any otorrhea or hearing loss. Ear pain has also improved. His right sided herpes zoster rash is also improving. He is currently on acyclovir. He had a carotid Doppler done last night, which did show carotid artery disease, 60% to 79% stenosis on the left and 40% to 59% stenosis on the right. PHYSICAL EXAMINATION: GENERAL: The patient was alert and oriented, in no acute respiratory distress. VITAL SIGNS: Afebrile. His pulse rate was 70. His blood pressure was 148/78, respiratory rate was 20. Oxygen saturation was 99% on room air. HEENT: His head was atraumatic, normocephalic. Pupils were equal and reactive to light. Extraocular muscles were intact. Physical examination of his right-sided face showed erythema with drying of the vesicular lesions. The external auditory canal was noted to be within normal limits. There was no erythema. The tympanic membrane was noted to be intact on both sides. Intranasal examination and oral examination were noted to be within normal limits. There is no noted nystagmus on physical examination. IMPRESSION: At this time, this 62-year-old male with history of herpes zoster oticus on right side of his face, who is gradually improving. He is currently on acylovir. PLAN: At this time would be to continue medical management and if the dizziness is still persistent, it is recommended that the patient undergo a VNG as well as a hearing test as an outpatient. Patient is to follow up with the office upon discharge. From the ENT perspective, he is stable and we would follow him as an outpatient. Gael Zuniga DO
--- NOTE | 2018-02-12 02:16 | PN ---
DATE: 02/11/2018 SUBJECTIVE: The patient was seen and examined on 02/11/2018. Still having dizziness. Rash is getting better. No hematuria or hematochezia. No swelling of the leg. No chest pain. No shortness of breath. No fever. No chills. PHYSICAL EXAMINATION: VITAL SIGNS: Temperature 98.7, pulse 80 , blood pressure 148/78, respiratory rate 20. HEENT: Head, normocephalic and atraumatic. Eyes, PERRLA. Extraocular muscles intact. Conjunctivae clear. Nose patent. Mucous membranes moist. NECK: Supple. No carotid bruit. No JVD or thyromegaly. CHEST: Bilaterally symmetrical. HEART: S1, S2 positive. LUNGS: Clear to auscultation. ABDOMEN: Soft. Bowel sounds present. No organomegaly. EXTREMITIES: No edema. No cyanosis. NEUROLOGICAL: The patient is awake, alert. Moving all four extremities. No focal deficits. MEDICATIONS: Acyclovir, Ambien, Antivert, Bactroban, Ecotrin, Lipitor, Norvasc, oxycodone, Pepcid and Valium. LABORATORY DATA: White blood cells 8, hemoglobin 13.6, hematocrit 38.8, platelets 294. Sodium 141, potassium 5, BUN 19 and creatinine 1.1, glucose 88. Iron saturation 17. ASSESSMENT AND PLAN: Mr. Miller Ceja is a 62-year-old male with history of zoster, getting acyclovir, improving very well; history of hypertension and ulcerative colitis, came with dizziness. His carotid Doppler shows 60% to 79% of left internal carotid artery stenosis and 40% to 59% proximal right internal carotid artery stenosis. MRI of the brain was unremarkable. Neurologist re-consult called. According to Dr. Len Whitaker, patient's dizziness is multifactorial secondary to herpes zoster, disequilibrium syndrome in addition to mild, slightly hypertensive urgency superimposed underlying carotid artery stenosis. He recommended aspirin 81 mg, Lipitor 40 mg, medical treatment of carotid artery disease, orthostatic vital signs, avoid certain movements and salt restriction in the diet and continue p.r.n. meclizine. Had acute onset of dizziness. According to neurologist, clinically patient is stable. We will call Cardiology consult also to rule out arrhythmia with gastrointestinal and deep venous thrombosis prophylaxis. Repeat labs. We will follow up. Saira Miles MD [facility] # [id number] KERRY
--- NOTE | 2018-02-12 12:34 | CP.PCM.PN ---
Subjective - Date & Time of Evaluation Date of Evaluation: 02/12/18 Time of Evaluation: 11:50 - Subjective Subjective: Patient is still having dizziness, but a little less, right side of face and neck has drying skin lesions and is feeling better but with occasional pain. No fevers. Objective - Vital Signs/Intake and Output Vital Signs (last 24 hours): Temp Pulse Resp BP Pulse Ox 97 F L 60 20 165/84 H 98 02/12/18 08:29 02/12/18 08:29 02/12/18 08:29 02/12/18 10:03 02/12/18 08:29 Intake and Output: 02/12/18 02/12/18 06:59 18:59 Intake Total 720 Balance 720 - Medications Medications: Current Medications Amlodipine Besylate (Norvasc) 10 mg PO DAILY [facility] Last Admin: 02/12/18 10:03 Dose: 10 mg Aspirin (Ecotrin) 81 mg PO DAILY [facility] Last Admin: 02/12/18 10:03 Dose: 81 mg Atorvastatin Calcium (Lipitor) 40 mg PO DIN [facility] Last Admin: 02/11/18 18:56 Dose: 40 mg Diazepam (Valium) 10 mg PO BID [facility] Last Admin: 02/12/18 10:00 Dose: 10 mg Famotidine (Pepcid) 40 mg PO HS [facility] Last Admin: 02/11/18 21:51 Dose: 40 mg Acyclovir 700 mg/ Sodium (Chloride) 100 mls @ 100 mls/hr IV Q8 [facility] PRN Reason: Protocol Last Admin: 02/12/18 05:39 Dose: 100 mls/hr Meclizine HCl (Antivert) 25 mg PO TID [facility] Last Admin: 02/12/18 10:03 Dose: 25 mg Mupirocin (Bactroban Ointment) 0 gm TOP BID [facility] Last Admin: 02/11/18 18:57 Dose: 1 appl Oxycodone HCl (Oxycodone Immediate Release Tab) 5 mg PO Q8 PRN PRN Reason: Pain, moderate (4-7) Last Admin: 02/07/18 21:40 Dose: 5 mg Zolpidem Tartrate (Ambien) 5 mg PO HS PRN; Protocol PRN Reason: Insomnia Last Admin: 02/10/18 22:28 Dose: 5 mg - Labs Labs: 02/08/18 07:00 02/08/18 07:00 - Constitutional Appears: Non-toxic, Chronically Ill - Head Exam Head Exam: NORMAL INSPECTION - ENT Exam Additional comments: right side of neck and face with crusted skin lesions - Neck Exam Neck Exam: absent: Meningismus - Respiratory Exam Respiratory Exam: Decreased Breath Sounds. absent: Rales - Cardiovascular Exam Cardiovascular Exam: +S1, +S2 - GI/Abdominal Exam GI & Abdominal Exam: Soft. absent: Tenderness Assessment and Plan - Assessment and Plan (Free Text) Plan: Assessment Right sided facial herpes zoster, slowly improving vertigo, etiology to be determined HTN ulcerative colitis Plan Continue Acyclovir day 5 to complete 7-10 days of therapy; can be switched to PO famvir 500 mg PO q8 to complete therapy when ready to be discharge RPR and FTA-ABS are negative
--- NOTE | 2018-02-12 13:30 | CP.PCM.PN ---
Subjective - Date & Time of Evaluation Date of Evaluation: 02/12/18 Time of Evaluation: 13:28 - Subjective Subjective: patient still dizzy skin lesions improving Objective - Vital Signs/Intake and Output Vital Signs (last 24 hours): Temp Pulse Resp BP Pulse Ox 97 F L 60 20 165/84 H 98 02/12/18 08:29 02/12/18 08:29 02/12/18 08:29 02/12/18 10:03 02/12/18 08:29 Intake and Output: 02/12/18 02/12/18 06:59 18:59 Intake Total 720 Balance 720 - Medications Medications: Current Medications Amlodipine Besylate (Norvasc) 10 mg PO DAILY [facility] Last Admin: 02/12/18 10:03 Dose: 10 mg Aspirin (Ecotrin) 81 mg PO DAILY [facility] Last Admin: 02/12/18 10:03 Dose: 81 mg Atorvastatin Calcium (Lipitor) 40 mg PO DIN [facility] Last Admin: 02/11/18 18:56 Dose: 40 mg Diazepam (Valium) 10 mg PO BID [facility] Last Admin: 02/12/18 10:00 Dose: 10 mg Famotidine (Pepcid) 40 mg PO HS [facility] Last Admin: 02/11/18 21:51 Dose: 40 mg Acyclovir 700 mg/ Sodium (Chloride) 100 mls @ 100 mls/hr IV Q8 [facility] PRN Reason: Protocol Last Admin: 02/12/18 05:39 Dose: 100 mls/hr Meclizine HCl (Antivert) 25 mg PO TID [facility] Last Admin: 02/12/18 10:03 Dose: 25 mg Mupirocin (Bactroban Ointment) 0 gm TOP BID [facility] Last Admin: 02/11/18 18:57 Dose: 1 appl Oxycodone HCl (Oxycodone Immediate Release Tab) 5 mg PO Q8 PRN PRN Reason: Pain, moderate (4-7) Last Admin: 02/07/18 21:40 Dose: 5 mg Zolpidem Tartrate (Ambien) 5 mg PO HS PRN; Protocol PRN Reason: Insomnia Last Admin: 02/10/18 22:28 Dose: 5 mg - Labs Labs: 02/08/18 07:00 02/08/18 07:00 - Head Exam Head Exam: ATRAUMATIC, NORMAL INSPECTION - Eye Exam Eye Exam: EOMI, Normal appearance Pupil Exam: NORMAL ACCOMODATION - ENT Exam ENT Exam: Mucous Membranes Moist, Normal Exam - Skin Additional comments: lesions appear to be crusting and healing Assessment and Plan (1) Asymmetrical right sensorineural hearing loss Status: Acute (2) Shingles Status: Acute (3) Vertigo Status: Acute (4) Labyrinthine dysfunction, right ear Status: Acute - Assessment and Plan (Free Text) Plan: recommend Physical therapy vestibular rehab both as in vs. out patient
--- NOTE | 2018-02-13 00:31 | CON ---
DATE: 02/12/2018 LOCATION: The patient in room 575, bed 2. REASON FOR CONSULTATION: Dizziness and cardiac evaluation. HISTORY OF PRESENT ILLNESS: Patient is a 62-year-old male, was admitted to the emergency room with history that he has developed rash on the right side of the neck which was found to be herpes zoster. Patient also getting dizziness since the last 2 weeks. Sometimes, he gets nauseous feeling; dizziness, he says that sometimes the room is spinning around, suggestive of vertigo. Patient denies any history of cardiac disease, or any chest pain, shortness of breath, palpitation on exertion. 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 Patient denied any syncope. PAST MEDICAL HISTORY: Positive for colitis and also patient was treated for anemia in the past. He was also admitted once for pneumonia. PERSONAL HISTORY: Denies smoking. Denies drinking. ALLERGIES: DENIES ANY ALLERGIES. PHYSICAL EXAMINATION: VITAL SIGNS: Blood pressure 166/89, respirations 20, pulse 60, temperature 97. Yesterday, blood pressure was 130/70, respirations 20, pulse 60, temperature 97. HEENT: Head is normocephalic. Eyes: Pupils normal. Conjunctivae normal. Nose and throat normal. NECK: Patient has rash on the right side of the neck suggestive of herpes zoster. LUNGS: Clear. CARDIOVASCULAR: S1 and S2. ABDOMEN: Soft. No tenderness. No organomegaly. EXTREMITIES: No clubbing. No cyanosis. LABORATORY DATA: WBC is 8, hemoglobin 13.6, hematocrit 38.8, platelets 294. Sodium 141, potassium 5, BUN 19, creatinine 1.1, glucose 92, calcium 8.8. Cholesterol 156, LDL 105, HDL 28, triglycerides 114. Chest x-ray, no active disease. EKG showed normal sinus rhythm. Right bundle branch block. CAT scan of the head, no acute findings. Carotid ultrasound showed 60% to 79% proximal left internal carotid artery stenosis, 40% to 59% right internal carotid artery stenosis, antegrade flow in both vertebral arteries. DIAGNOSES: Dizziness, vertigo-like symptoms, herpes zoster, history of colitis, history of anemia in the past. PLAN: We will do an echocardiogram and later on when patient's dizziness is improved we will do the stress test as outpatient. We will monitor also blood pressures, if persistently high, I will treat it. Patient on meclizine 25 mg t.i.d., aspirin 81 mg daily, Lipitor 40 mg daily, amlodipine 10 mg daily, acyclovir 7 mg IV every 8 hours. We will continue present therapy. We will follow with you. Eloy Interiano MD
[2018-02-13 07:19] LABS: HEMOGLOBIN 12.1 g/dL (14.0-18.0); MEAN CELL VOLUME 95.1 fl (80.0-105.0); MEAN CORPUSCULAR HEMOGLOBIN 33.2 pg (25.0-35.0); MEAN PLATELET VOLUME 8.1 fl (7.0-11.0); RBC 3.64 10^6/uL (3.5-6.1); RED CELL DISTRIBUTION WIDTH 13.1 % (11.5-14.5); WHITE BLOOD COUNT 7.7 10^3/ul (4.5-11.0)
[2018-02-13 07:30] LABS: BLOOD UREA NITROGEN 15 mg/dL (7-21); CALCIUM 8.9 mg/dL (8.4-10.5); GFR AFRICAN-AMERICAN > 60; GFR NON-AFRICAN AMERICAN > 60
--- NOTE | 2018-02-13 11:35 | CP.PCM.PN ---
Subjective - Date & Time of Evaluation Date of Evaluation: 02/13/18 Time of Evaluation: 07:15 - Subjective Subjective: Awake, feels okay, denies cest pain, denies shortness of breath Reason for consultation and follow up:cardiac evaluation, dizziness, carotid stenosis, herpes zoster,hypertension Seen and examined by me and Dr. Interiano Objective - Vital Signs/Intake and Output Vital Signs (last 24 hours): Temp Pulse Resp BP Pulse Ox 98.2 F 63 20 120/70 98 02/13/18 08:26 02/13/18 08:26 02/13/18 08:26 02/13/18 10:04 02/13/18 08:26 Intake and Output: 02/13/18 02/13/18 06:59 18:59 Intake Total 720 Balance 720 - Medications Medications: Current Medications Amlodipine Besylate (Norvasc) 10 mg PO DAILY [facility] Last Admin: 02/13/18 10:04 Dose: 10 mg Aspirin (Ecotrin) 81 mg PO DAILY [facility] Last Admin: 02/13/18 10:05 Dose: 81 mg Atorvastatin Calcium (Lipitor) 40 mg PO DIN [facility] Last Admin: 02/12/18 17:39 Dose: 40 mg Diazepam (Valium) 10 mg PO BID [facility] Last Admin: 02/13/18 10:04 Dose: 10 mg Famotidine (Pepcid) 40 mg PO HS [facility] Last Admin: 02/13/18 04:26 Dose: Not Given Acyclovir 700 mg/ Sodium (Chloride) 100 mls @ 100 mls/hr IV Q8 [facility] PRN Reason: Protocol Last Admin: 02/13/18 05:40 Dose: 100 mls/hr Meclizine HCl (Antivert) 25 mg PO TID [facility] Last Admin: 02/13/18 10:05 Dose: 25 mg Mupirocin (Bactroban Ointment) 0 gm TOP BID [facility] Last Admin: 02/13/18 10:05 Dose: 1 appl Oxycodone HCl (Oxycodone Immediate Release Tab) 5 mg PO Q8 PRN PRN Reason: Pain, moderate (4-7) Last Admin: 02/07/18 21:40 Dose: 5 mg Zolpidem Tartrate (Ambien) 5 mg PO HS PRN; Protocol PRN Reason: Insomnia Last Admin: 02/13/18 01:43 Dose: 5 mg - Labs Labs: 02/13/18 07:00 02/13/18 07:00 - Constitutional Appears: No Acute Distress - Head Exam Head Exam: NORMOCEPHALIC - ENT Exam ENT Exam: Mucous Membranes Moist - Neck Exam Additional comments: right side of face and neck scabby rashes - Respiratory Exam Respiratory Exam: Decreased Breath Sounds, NORMAL BREATHING PATTERN - Cardiovascular Exam Cardiovascular Exam: +S1, +S2 - GI/Abdominal Exam GI & Abdominal Exam: Soft, Normal Bowel Sounds - Extremities Exam Extremities Exam: Normal Capillary Refill - Neurological Exam Neurological Exam: Alert, Awake, Oriented x3 - Psychiatric Exam Psychiatric exam: Anxious - Skin Skin Exam: Normal Color, Warm Assessment and Plan - Assessment and Plan (Free Text) Assessment: A 62 year old male who came in to the ER due to right sided facial rash to neck for the past 5-6 days with pain accompanied by dizziness. Denies chest pain, history of pneumonia,ulcerative colitis,hypertension. Carotid ultrasound done and showed 60-79% LIC artery stenosis and 40-59% proximal NATALIE artery stenosis. Plan: Echo done today, will follow up final results Dizziness, non cardiac, evaluated by EENT Being treated for herpes zoster Carotid stenosis will be treated medically as recommended Hypertension- started on Norvasc 10 mg daily On ASA 81 mg daily Continue current medications Continue current treatment Will follow up Plan and treatment discussed with Dr. Interiano
--- NOTE | 2018-02-13 15:36 | CARD ---
APPROVED REPORT EXAM: Two-dimensional and M-mode echocardiogram with Doppler and color Doppler. INDICATION NEAR SYNCOPE/DIZZINESS 2D DIMENSIONS Left Atrium (2D)3.5 (1.6-4.0cm)IVSd1.6 (0.7-1.1cm) LVDd3.3 (3.9-5.9cm)PWd1.4 (0.7-1.1cm) LVDs2.1 (2.5-4.0cm)FS (%) 36.1 % LVEF (%)67.1 (>50%) M-Mode DIMENSIONS Aortic Root2.50 (2.2-3.7cm)Aortic Cusp Exc.1.70 (1.5-2.0cm) Aortic Valve AoV Peak Eyedcday401.0cm/Liane Peak GR.10mmHg Mitral Valve MV E Atlpqkat35.5cm/sMV A Sgnonjqj79.4cm/sE/A ratio0.7 TDI Lateral E' Peak V6.82cm/sMedial E' Peak V5.26cm/sE/Lateral E'8.9 E/Medial E'11.5 Tricuspid Valve TR Peak Unneyubq843jm/sRAP [id number] Peak Gr.9mmHg [id number] LEFT VENTRICLE Transmitral Doppler flow pattern is Grade I-abnormal relaxation pattern. <Conclusion> Chamber Sizes are Normal. LV Shows Moderate Concenteric Hypertrophy. Normal LV Systolic Function with EJ.Fr: 67%. Transmitral Doppler flow pattern is Grade I-Abnormal relaxation Pattern. Aortic Sclerosis But Aortic Valve Opening Normal. Trace Tricuspid Regurge. Trace Pulmonic Regurge.
--- NOTE | 2018-02-13 16:06 | CP.PCM.PN ---
Subjective - Date & Time of Evaluation Date of Evaluation: 02/13/18 Time of Evaluation: 11:25 - Subjective Subjective: Still with some dizziness, no fevers, not in distress, facial lesions are dried up. Objective - Vital Signs/Intake and Output Vital Signs (last 24 hours): Temp Pulse Resp BP Pulse Ox 98.2 F 63 20 120/73 98 02/13/18 08:26 02/13/18 08:26 02/13/18 08:26 02/13/18 08:26 02/13/18 08:26 Intake and Output: 02/13/18 02/13/18 06:59 18:59 Intake Total 720 Balance 720 - Medications Medications: Current Medications Amlodipine Besylate (Norvasc) 10 mg PO DAILY [facility] Last Admin: 02/12/18 10:03 Dose: 10 mg Aspirin (Ecotrin) 81 mg PO DAILY [facility] Last Admin: 02/12/18 10:03 Dose: 81 mg Atorvastatin Calcium (Lipitor) 40 mg PO DIN [facility] Last Admin: 02/12/18 17:39 Dose: 40 mg Diazepam (Valium) 10 mg PO BID [facility] Last Admin: 02/12/18 17:40 Dose: 10 mg Famotidine (Pepcid) 40 mg PO HS [facility] Last Admin: 02/13/18 04:26 Dose: Not Given Acyclovir 700 mg/ Sodium (Chloride) 100 mls @ 100 mls/hr IV Q8 [facility] PRN Reason: Protocol Last Admin: 02/13/18 05:40 Dose: 100 mls/hr Meclizine HCl (Antivert) 25 mg PO TID [facility] Last Admin: 02/12/18 17:40 Dose: 25 mg Mupirocin (Bactroban Ointment) 0 gm TOP BID [facility] Last Admin: 02/12/18 17:51 Dose: 1 appl Oxycodone HCl (Oxycodone Immediate Release Tab) 5 mg PO Q8 PRN PRN Reason: Pain, moderate (4-7) Last Admin: 02/07/18 21:40 Dose: 5 mg Zolpidem Tartrate (Ambien) 5 mg PO HS PRN; Protocol PRN Reason: Insomnia Last Admin: 02/13/18 01:43 Dose: 5 mg - Labs Labs: 02/13/18 07:00 02/13/18 07:00 - Constitutional Appears: Chronically Ill - Head Exam Head Exam: NORMAL INSPECTION - ENT Exam ENT Exam: Mucous Membranes Moist Additional comments: right side of face with dried up lesions - Neck Exam Neck Exam: absent: Meningismus - Respiratory Exam Respiratory Exam: Decreased Breath Sounds - Cardiovascular Exam Cardiovascular Exam: +S1, +S2 - GI/Abdominal Exam GI & Abdominal Exam: Soft. absent: Tenderness Assessment and Plan - Assessment and Plan (Free Text) Plan: Assessment Right sided facial herpes zoster, clinically improving vertigo, etiology to be determined HTN ulcerative colitis Plan Continue Acyclovir day 6 to complete 7-10 days of therapy; can be switched to PO famvir 500 mg PO q8 to complete therapy when ready to be discharged RPR and FTA-ABS are negative
--- NOTE | 2018-02-14 04:15 | PN ---
DATE: 02/13/2018 SUBJECTIVE: The patient is a 62-year-old male. Patient was seen and examined at the bedside on 02/13/2018. Still dizzy. No fever, no chills. Facial lesion is getting better, but according to him, he is lightheaded, he cannot walk even a few steps and he is afraid of fall because of dizziness. PHYSICAL EXAMINATION: VITAL SIGNS: Temperature 98.2, pulse 53, respiratory rate 20, blood pressure 120/70, pulse oximetry is 98%. HEENT: Head, normocephalic and atraumatic. Eyes PERRLA. Extraocular muscles intact. Conjunctivae clear. Nose patent. Mucous membrane moist. NECK: Supple. No carotid bruit, JVD, or thyromegaly. CHEST: Bilaterally symmetrical. HEART: S1 and S2 positive. LUNGS: Clear to auscultation. ABDOMEN: Soft. Bowel sounds present. No organomegaly. EXTREMITIES: No edema. No cyanosis. NEUROLOGIC: Patient is awake, alert. Moving all four extremities. No focal deficit. MEDICATIONS: Amlodipine, aspirin, atorvastatin, Pepcid, acyclovir, meclizine. LABORATORY DATA: White blood cells 7.7, hemoglobin 12.1, hematocrit 34.6, platelets 283. Sodium 143, potassium 4.2, BUN 15, creatinine 1. Glucose 88. ASSESSMENT: Mr. Miller Ceja is a 62-year-old male with anemia; has right-sided facial herpes zoster, clinically improved; vertigo etiology to be determined, still dizzy; hypertension; history of ulcerative colitis. PLAN: Continue acyclovir, today is day #6 to complete 7 to 10 days. RPR and FTA antibodies are negative as per Infectious Disease. Seen by the journeyman mechanic, went for echocardiography. Denies chest pain. History of pneumonia in the past. Carotid ultrasound Doppler showed 60% to 79% LIC carotid artery stenosis, 40% to 59% proximal ICA stenosis. We will consult with Dr. Alireza Rice and vascular specialist Dr. Erendira Ceja. The patient is seen by neurologist and ENT. Continue antibiotics. May be need special type of OT and PT. Repeat labs. We will follow up. Saira Miles MD
[2018-02-14] MEDS: Amoxicillin-Clav 500-125 mg Tab PO SCH ×3 (05:30→21:25)
--- NOTE | 2018-02-14 07:41 | CP.PCM.PN ---
Subjective - Date & Time of Evaluation Date of Evaluation: 02/14/18 Time of Evaluation: 06:30 - Subjective Subjective: Sleeping but easily awaken, slight pain at side of head, dizziness denies chest pain, denies shortness of breath Reason for consultation and follow up:Cardiac evaluation, dizziness, carotid stenosis, herpes zoster,hypertension Seen and examined by me and Dr. Interiano Objective - Vital Signs/Intake and Output Vital Signs (last 24 hours): Temp Pulse Resp BP Pulse Ox 98.4 F 67 20 128/79 99 02/13/18 23:19 02/13/18 23:19 02/13/18 23:19 02/13/18 23:19 02/13/18 23:19 Intake and Output: 02/14/18 02/14/18 06:59 18:59 Intake Total 0 Balance 0 - Medications Medications: Current Medications Amlodipine Besylate (Norvasc) 10 mg PO DAILY [facility] Last Admin: 02/13/18 10:04 Dose: 10 mg Amoxicillin/Clavulanate Potassium (Augmentin 500 Mg-125 Mg Tab) 1 tab PO Q8 [facility] PRN Reason: Protocol Last Admin: 02/14/18 05:30 Dose: 1 tab Aspirin (Ecotrin) 81 mg PO DAILY [facility] Last Admin: 02/13/18 10:05 Dose: 81 mg Atorvastatin Calcium (Lipitor) 40 mg PO DIN [facility] Last Admin: 02/13/18 17:13 Dose: 40 mg Famotidine (Pepcid) 40 mg PO HS [facility] Last Admin: 02/13/18 23:12 Dose: 40 mg Acyclovir 700 mg/ Sodium (Chloride) 100 mls @ 100 mls/hr IV Q8 [facility] PRN Reason: Protocol Last Admin: 02/14/18 05:30 Dose: 100 mls/hr Meclizine HCl (Antivert) 25 mg PO TID [facility] Last Admin: 02/13/18 17:13 Dose: 25 mg Mupirocin (Bactroban Ointment) 0 gm TOP BID [facility] Last Admin: 02/13/18 17:15 Dose: 1 appl - Labs Labs: 02/13/18 07:00 02/13/18 07:00 - Constitutional Appears: No Acute Distress - Head Exam Additional comments: scabby rash at side of head and face to neck - ENT Exam ENT Exam: Mucous Membranes Moist - Respiratory Exam Respiratory Exam: Clear to Ausculation Bilateral, NORMAL BREATHING PATTERN - Cardiovascular Exam Cardiovascular Exam: +S1, +S2 - GI/Abdominal Exam GI & Abdominal Exam: Soft, Normal Bowel Sounds - Extremities Exam Extremities Exam: Normal Capillary Refill - Neurological Exam Neurological Exam: Alert, Awake, Oriented x3 - Psychiatric Exam Psychiatric exam: Anxious - Skin Skin Exam: Intact, Normal Color, Warm Assessment and Plan - Assessment and Plan (Free Text) Assessment: 62 year old male who came in to the ER due to right sided facial rash to neck for the past 5-6 days with pain accompanied by dizziness. Denies chest pain, history of pneumonia,ulcerative colitis,hypertension. Carotid ultrasound done and showed 60-79% LIC artery stenosis and 40-59% proximal NATALIE artery stenosis.rashes on right side of head/face-herpes zoster, Plan: Echo done yesterday result-LVEF 67 %,moderate concentric hypertrophy Dizziness, non cardiac, evaluated by EENT Being treated for herpes zoster Carotid stenosis will be treated medically as recommended On Norvasc 10 mg daily, ASA 81 mg daily Continue current medications Continue current treatment Refusing Stress test Will follow up Plan and treatment discussed with Dr. Interiano
--- NOTE | 2018-02-14 08:34 | PN ---
DATE: 02/12/2018 SUBJECTIVE: The patient is a 62-year-old male. The patient is seen and examined at the bedside, looking comfortable. The patient was seen and examined on 02/12/2018. Still having dizziness, but it is a bit less. Right-sided rash of face and neck is drying up and is feeling better. The patient with occasional pain in the head and neck, like postherpetic neuralgia. No fever, no chills. PHYSICAL EXAMINATION: VITAL SIGNS: Temperature 97, pulse 60, respiratory rate 20, blood pressure 160/84, pulse oximetry is 98. HEENT: Head: Normocephalic, atraumatic. Eyes: PERRLA, extraocular muscles are intact, conjunctivae are clear. Nose: Patent. Mucous membranes are moist. NECK: Supple. No carotid bruit, JVD, or thyromegaly. CHEST: Bilaterally symmetrical. HEART: S1 and S2 positive. LUNGS: Clear to auscultation. ABDOMEN: Soft. Bowel sounds present. No organomegaly. EXTREMITIES: No edema. No cyanosis. NEUROLOGIC: The patient is awake and alert, moving all 4 extremities. No focal deficits. MEDICATIONS: Aspirin, Lipitor, Valium, Pepcid, acylovir, Antivert, Bactroban ointment, oxycodone, and Ambien. LABORATORY DATA: White blood cell 8, hemoglobin 13.6, hematocrit 38.8, platelets 294. Sodium 141, potassium 5, BUN 19, creatinine 1.1, glucose 92. ASSESSMENT AND PLAN: Mr. Miller Ceja is a 62-year-old male with anemia, had right-sided facial Herpes zoster, slowly improving; vertigo, not improving very well, etiology not determined; hypertension; ulcerative colitis. Continue acylovir, day #5, to complete 7 to 10 days , but waiting for dizziness improvement. RP and SP antibodies are negative. Appreciated ID input. Seen by Dr. Malachi Chand, ENT. According to them, the patient has asymmetrical right sensorineural hearing loss, labyrinthine dysfunction, right ear. Recommended physical therapy, vestibular rehab both as inpatient versus outpatient. Seen by [facility], Dr. Interiano. History of ulcerative colitis. Echocardiography done. Wanted to do stress test as outpatient. The patient is on meclizine, Lipitor, amlodipine. I reviewed carotid ultrasound by me, 60%-79% proximal left internal carotid artery and 40%-60% proximal right internal carotid artery stenosis, antegrade flow in both vertebral arteries, the left vertebral artery is dominant. We will get opinion from Dr. Alireza Rice. Otherwise, the patient is improving, physical therapy, out of bed. We will follow up. Saira Miles MD MTDD
--- NOTE | 2018-02-14 11:14 | CP.PCM.CON ---
History of Present Illness - History of Present Illness History of Present Illness: Vascular Consult Note for Dr. Ceja 62 yo M with PMH of ulcerative colitis who initially presented to the ER for facial rash and dizziness. He has been seen by ENT, neurology, and cardiology. He describes his dizziness as room-spinning vertigo. His dizziness is improving since admission, and he no longer has the strong room-spinning sensation. He has never had this before, and since it started, it is not associated with any particular exacerbating or remitting factors. He denies any associated headache , chest pain, palpitations, or shortness of breath. He had a carotid ultrasound which showed 60-79% stenosis in the left ICA. He denies any focal numbness/ weakness, confusion, vision changes, hearing loss, slurred speech, or facial droop. He denies any history of heart attack or stroke. PMH: Ulcerative colitis PSH: Denies FHx: Denies Soc: Denies tobacco, alcohol, or illicits; works in construction All: NKDA Review of Systems - Constitutional Constitutional: absent: Fatigue, Fever, Headache - EENT Eyes: absent: Blind Spots, Blurred Vision, Change in Vision, Discharge, Pain, Loss of Vision Ears: Disequilibrium, Dizziness. absent: Decreased Hearing Nose/Mouth/Throat: absent: Nasal Congestion, Nasal Discharge, Nasal Obstruction , Sinus Pain, Sinus Pressure - Cardiovascular Cardiovascular: absent: Chest Pain, Claudication, Diaphoresis, Dyspnea - Respiratory Respiratory: absent: Cough, Dyspnea, Hemoptysis - Gastrointestinal Gastrointestinal: absent: Abdominal Pain - Genitourinary Genitourinary: absent: Change in Urinary Stream - Musculoskeletal Musculoskeletal: absent: Arthralgias - Integumentary Integumentary: Lesions, Rash - Neurological Neurological: Disequilibrium, Dizziness, Vertigo. absent: Abnormal Hearing, Numbness, Focal Weakness, Headaches, Paresthesias, Syncope, Weakness - Psychiatric Psychiatric: absent: Behavioral Changes, Confusion Past Patient History - Infectious Disease Hx of Infectious Diseases: None - Tetanus Immunizations Tetanus Immunization: Unknown - Past Social History Smoking Status: Never Smoked - CARDIAC Hx Cardiac Disorders: No - PULMONARY Hx Respiratory Disorders: No - NEUROLOGICAL Hx Neurological Disorder: No - HEENT Hx HEENT Problems: No - RENAL Hx Chronic Kidney Disease: No - ENDOCRINE/METABOLIC Hx Endocrine Disorders: No - HEMATOLOGICAL/ONCOLOGICAL Hx Blood Disorders: No - INTEGUMENTARY Hx Dermatological Problems: No - MUSCULOSKELETAL/RHEUMATOLOGICAL Hx Musculoskeletal Disorders: No - GASTROINTESTINAL Hx Gastrointestinal Disorders: Yes - GENITOURINARY/GYNECOLOGICAL Hx Genitourinary Disorders: No - PSYCHIATRIC Hx Psychophysiologic Disorder: No Hx Substance Use: No - SURGICAL HISTORY Hx Surgeries: No - ANESTHESIA Hx Anesthesia: No Meds Allergies/Adverse Reactions: Allergies Allergy/AdvReac Type Severity Reaction Status Date / Time No Known Allergies Allergy Verified 02/05/18 15:43 - Medications Medications: Current Medications Amlodipine Besylate (Norvasc) 10 mg PO DAILY [facility] Last Admin: 02/14/18 10:08 Dose: 10 mg Amoxicillin/Clavulanate Potassium (Augmentin 500 Mg-125 Mg Tab) 1 tab PO Q8 [facility] PRN Reason: Protocol Last Admin: 02/14/18 05:30 Dose: 1 tab Aspirin (Ecotrin) 81 mg PO DAILY [facility] Last Admin: 02/14/18 10:08 Dose: 81 mg Atorvastatin Calcium (Lipitor) 40 mg PO DIN [facility] Last Admin: 02/13/18 17:13 Dose: 40 mg Famotidine (Pepcid) 40 mg PO HS [facility] Last Admin: 02/13/18 23:12 Dose: 40 mg Acyclovir 700 mg/ Sodium (Chloride) 100 mls @ 100 mls/hr IV Q8 [facility] PRN Reason: Protocol Last Admin: 02/14/18 05:30 Dose: 100 mls/hr Meclizine HCl (Antivert) 25 mg PO TID [facility] Last Admin: 02/14/18 10:07 Dose: 25 mg Mupirocin (Bactroban Ointment) 0 gm TOP BID [facility] Last Admin: 02/14/18 10:09 Dose: 1 appl Physical Exam - Constitutional Appears: Non-toxic, No Acute Distress - Head Exam Head Exam: ATRAUMATIC, NORMOCEPHALIC - Eye Exam Eye Exam: EOMI, Normal appearance, PERRL - ENT Exam ENT Exam: Mucous Membranes Moist Additional comments: Right face with dry, crusted, healing lesions over mandibular distribution of trigeminal nerve - Respiratory Exam Respiratory Exam: Clear to Auscultation Bilateral, NORMAL BREATHING PATTERN - Cardiovascular Exam Cardiovascular Exam: RRR, +S1, +S2 - GI/Abdominal Exam GI & Abdominal Exam: Soft. absent: Tenderness - Extremities Exam Extremities exam: Positive for: full ROM. Negative for: calf tenderness, pedal edema - Neurological Exam Neurological exam: Abnormal Gait, Alert, CN II-XII Intact, Oriented x3 Additional comments: Positive romberg sign Gait unsteady - Psychiatric Exam Psychiatric exam: Normal Affect, Normal Mood - Skin Skin Exam: Dry, Rash (right face (see ENT exam)) Results - Vital Signs Recent Vital Signs: Last Vital Signs Temp 97.6 F 02/14/18 06:00 Pulse 77 02/14/18 06:00 Resp 20 02/14/18 06:00 BP 133/78 02/14/18 10:08 Pulse Ox 99 02/14/18 06:00 - Labs Result Diagrams: 02/13/18 07:00 02/13/18 07:00 Assessment & Plan - Assessment and Plan (Free Text) Assessment: 62 yo M with PMH of ulcerative colitis, presenting with herpetic rash over right face and dizziness/vertigo; left ICA stenosis 60-79% on carotid doppler Plan: -- Patient is symptomatically improving with antiviral treatment of shingles and symptomatic treatment -- Dizziness more likely secondary to zoster infection -- Recommend opthalmology evaluation to rule out ocular involvement -- Patient has not had medical management of his carotid stenosis until this hospitalization, and appears to be asymptomatic from it at this time -- Recommend continued medical management with ASA, statin -- Recheck carotid doppler in 6 months -- No surgical intervention at this time -- Discussed with Dr. Marcial Lundy PGY1
--- NOTE | 2018-02-14 13:38 | CP.PCM.PN ---
Subjective - Date & Time of Evaluation Date of Evaluation: 02/14/18 Time of Evaluation: 11:35 - Subjective Subjective: right side of face and neck are feeling better, lesions are drying or dried and sloughing off, no fevers, still with some dizziness. Objective - Vital Signs/Intake and Output Vital Signs (last 24 hours): Temp Pulse Resp BP Pulse Ox 97.6 F 77 20 133/88 99 02/14/18 06:00 02/14/18 06:00 02/14/18 06:00 02/14/18 06:00 02/14/18 06:00 Intake and Output: 02/14/18 02/14/18 06:59 18:59 Intake Total 0 Balance 0 - Medications Medications: Current Medications Amlodipine Besylate (Norvasc) 10 mg PO DAILY [facility] Last Admin: 02/13/18 10:04 Dose: 10 mg Amoxicillin/Clavulanate Potassium (Augmentin 500 Mg-125 Mg Tab) 1 tab PO Q8 [facility] PRN Reason: Protocol Last Admin: 02/14/18 05:30 Dose: 1 tab Aspirin (Ecotrin) 81 mg PO DAILY [facility] Last Admin: 02/13/18 10:05 Dose: 81 mg Atorvastatin Calcium (Lipitor) 40 mg PO DIN [facility] Last Admin: 02/13/18 17:13 Dose: 40 mg Famotidine (Pepcid) 40 mg PO HS [facility] Last Admin: 02/13/18 23:12 Dose: 40 mg Acyclovir 700 mg/ Sodium (Chloride) 100 mls @ 100 mls/hr IV Q8 [facility] PRN Reason: Protocol Last Admin: 02/14/18 05:30 Dose: 100 mls/hr Meclizine HCl (Antivert) 25 mg PO TID [facility] Last Admin: 02/13/18 17:13 Dose: 25 mg Mupirocin (Bactroban Ointment) 0 gm TOP BID [facility] Last Admin: 02/13/18 17:15 Dose: 1 appl - Labs Labs: 02/13/18 07:00 02/13/18 07:00 - Constitutional Appears: Non-toxic, Chronically Ill - Head Exam Head Exam: NORMAL INSPECTION - ENT Exam Additional comments: right side of face and neck with sloughing off dried lesions - Neck Exam Neck Exam: absent: Meningismus - Respiratory Exam Respiratory Exam: Decreased Breath Sounds. absent: Rales - Cardiovascular Exam Cardiovascular Exam: +S1, +S2 - GI/Abdominal Exam GI & Abdominal Exam: Soft. absent: Tenderness Assessment and Plan - Assessment and Plan (Free Text) Plan: Assessment Right sided facial herpes zoster, clinically improving vertigo, etiology to be determined - patient with carotid artery stenosis HTN ulcerative colitis Plan Continue Acyclovir day 7 to complete 7-10 days of therapy; can be switched to PO famvir 500 mg PO q8 to complete therapy when ready to be discharged RPR and FTA-ABS are negative awaiting plan of Vascular surgery for the carotid artery stenosis
--- NOTE | 2018-02-14 17:57 | CP.PCM.PN ---
Subjective - Date & Time of Evaluation Date of Evaluation: 02/14/18 Time of Evaluation: 17:55 - Subjective Subjective: pt seen and evaluated with agreement. Pt still dizzy did not start PT yet. Pt had discussion of medical management vs surgery for carotid artery. Pt states face has been clearing of lesions Objective - Vital Signs/Intake and Output Vital Signs (last 24 hours): Temp Pulse Resp BP Pulse Ox 98.2 F 113 H 20 118/76 100 02/14/18 14:00 02/14/18 14:00 02/14/18 14:00 02/14/18 14:00 02/14/18 14:00 Intake and Output: 02/14/18 02/14/18 06:59 18:59 Intake Total 0 1420 Balance 0 1420 - Medications Medications: Current Medications Amlodipine Besylate (Norvasc) 10 mg PO DAILY [facility] Last Admin: 02/14/18 10:08 Dose: 10 mg Amoxicillin/Clavulanate Potassium (Augmentin 500 Mg-125 Mg Tab) 1 tab PO Q8 [facility] PRN Reason: Protocol Last Admin: 02/14/18 14:32 Dose: 1 tab Aspirin (Ecotrin) 81 mg PO DAILY [facility] Last Admin: 02/14/18 10:08 Dose: 81 mg Atorvastatin Calcium (Lipitor) 40 mg PO DIN [facility] Last Admin: 02/14/18 17:11 Dose: 40 mg Famotidine (Pepcid) 40 mg PO HS [facility] Last Admin: 02/13/18 23:12 Dose: 40 mg Acyclovir 700 mg/ Sodium (Chloride) 100 mls @ 100 mls/hr IV Q8 [facility] PRN Reason: Protocol Last Admin: 02/14/18 14:32 Dose: 100 mls/hr Meclizine HCl (Antivert) 25 mg PO TID [facility] Last Admin: 02/14/18 14:30 Dose: 25 mg Mupirocin (Bactroban Ointment) 0 gm TOP BID [facility] Last Admin: 02/14/18 10:09 Dose: 1 appl - Labs Labs: 02/13/18 07:00 02/13/18 07:00 - Constitutional Appears: Well, Non-toxic, No Acute Distress - Head Exam Head Exam: ATRAUMATIC, NORMAL INSPECTION, NORMOCEPHALIC - Eye Exam Eye Exam: Normal appearance Pupil Exam: NORMAL ACCOMODATION, PERRL - ENT Exam ENT Exam: Mucous Membranes Moist, Normal External Ear Exam Assessment and Plan (1) Asymmetrical right sensorineural hearing loss Status: Acute (2) Shingles Status: Acute (3) Vertigo Status: Acute (4) Labyrinthine dysfunction, right ear Status: Acute - Assessment and Plan (Free Text) Plan: continue conservative management and begin physical therapy
[2018-02-15] MEDS: Amoxicillin-Clav 500-125 mg Tab PO SCH ×3 (05:43→21:46)
--- NOTE | 2018-02-15 13:58 | CP.PCM.PN ---
Subjective - Date & Time of Evaluation Date of Evaluation: 02/15/18 Time of Evaluation: 13:15 - Subjective Subjective: Comfortable, no fevers, improved pain on the right side of neck and face. Still with occasional dizziness. Objective - Vital Signs/Intake and Output Vital Signs (last 24 hours): Temp Pulse Resp BP Pulse Ox 98.2 F 65 20 133/90 100 02/15/18 06:00 02/15/18 06:00 02/15/18 06:00 02/15/18 10:21 02/15/18 06:00 Intake and Output: 02/15/18 02/15/18 06:59 18:59 Intake Total 860 Balance 860 - Medications Medications: Current Medications Amlodipine Besylate (Norvasc) 10 mg PO DAILY [facility] Last Admin: 02/15/18 10:21 Dose: 10 mg Amoxicillin/Clavulanate Potassium (Augmentin 500 Mg-125 Mg Tab) 1 tab PO Q8 [facility] PRN Reason: Protocol Last Admin: 02/15/18 05:43 Dose: 1 tab Aspirin (Ecotrin) 81 mg PO DAILY [facility] Last Admin: 02/15/18 10:21 Dose: 81 mg Atorvastatin Calcium (Lipitor) 40 mg PO DIN [facility] Last Admin: 02/14/18 17:11 Dose: 40 mg Famotidine (Pepcid) 40 mg PO HS [facility] Last Admin: 02/14/18 21:24 Dose: Not Given Acyclovir 700 mg/ Sodium (Chloride) 100 mls @ 100 mls/hr IV Q8 [facility] PRN Reason: Protocol Last Admin: 02/15/18 05:42 Dose: 100 mls/hr Meclizine HCl (Antivert) 25 mg PO TID [facility] Last Admin: 02/15/18 10:20 Dose: 25 mg Mupirocin (Bactroban Ointment) 0 gm TOP BID [facility] Last Admin: 02/15/18 10:20 Dose: 1 appl - Labs Labs: 02/13/18 07:00 02/13/18 07:00 - Constitutional Appears: Non-toxic, Chronically Ill - Head Exam Head Exam: NORMAL INSPECTION - ENT Exam ENT Exam: Mucous Membranes Moist Additional comments: crusted, dried skin lesions on right side of neck and face, improved and healing - Neck Exam Neck Exam: absent: Lymphadenopathy, Meningismus - Respiratory Exam Respiratory Exam: Decreased Breath Sounds. absent: Rales - Cardiovascular Exam Cardiovascular Exam: +S1, +S2 - GI/Abdominal Exam GI & Abdominal Exam: Soft. absent: Tenderness Assessment and Plan - Assessment and Plan (Free Text) Plan: Assessment Right sided facial herpes zoster, clinically improving vertigo, etiology to be determined - patient with carotid artery stenosis HTN ulcerative colitis Plan Continue Acyclovir day 8 to complete 7-10 days of therapy; can be switched to PO famvir 500 mg PO q8 to complete therapy when ready to be discharged RPR and FTA-ABS are negative awaiting plan of Vascular surgery for the carotid artery stenosis
--- NOTE | 2018-02-15 15:07 | PN ---
DATE: 02/14/2018 SUBJECTIVE: The patient was seen and examined on 02/14/2018. Has rash on the right side of face and neck, that improved a lot. Lesions are drying or dried and sloughing off. No fever, no chills. Still has dizziness. Actually, the patient's dizziness started even before shingles, now shingles disappeared, but still is dizzy. ENT, Neurology, Vascular specialist is on the case. PHYSICAL EXAMINATION: VITAL SIGNS: Temperature 97.6, pulse 77, respiratory rate 20, blood pressure 133/88, pulse oximetry 99. HEENT: Head: Normocephalic, atraumatic. Eyes: PERRLA. Extraocular muscles intact. Conjunctivae clear. Nose patent. Mucous membranes moist. NECK: Supple. No carotid bruit. No JVD or thyromegaly. CHEST: Bilaterally symmetrical. HEART: S1, S2 positive. LUNGS: Clear to auscultation. ABDOMEN: Soft. Bowel sounds present. No organomegaly. EXTREMITIES: No edema. No cyanosis. NEUROLOGICAL: The patient is awake, alert. Moving all 4 extremities. No focal deficit. MEDICATIONS: Augmentin, aspirin, Lipitor, Pepcid, acyclovir, Antivert, Bactroban cream. LABORATORY DATA: White blood cell 7.7, hemoglobin 12.1, hematocrit 34.6, platelets 286. Sodium 143, potassium 4.2, BUN 15, creatinine 1. Glucose 88. ASSESSMENT AND PLAN: Mr. Miller Ceja is a 62-year-old male with anemia, came with herpes zoster. Infectious Disease is on the case. Clinically, the right-sided facial zoster is improving, vertigo challenge is to be determined. The patient has actually dizziness even before shingles, now after improving shingles, dizziness is still there. There is no improvement as per patient. The patient has carotid artery stenosis, Vascular specialist is on the case. According to Dr. Erendira Ceja, medical treatment, no surgeries. Repeat carotid Doppler in six months. Appreciated her input. Hypertension, ulcerative colitis, continue acyclovir, today is day 7 of the 10th day of therapy. RPR, FTA antibodies are negative. Appreciated Dr. Johnson's input. Seen by Dr. Malachi Chand, ENT. He had symmetrical right sensory neural hearing loss, labyrinthine dysfunction of right ear. According to ENT, continue conservative management and begin physical therapy. Length of time discussion done with the patient. Reviewed Cardiology, ENT and Vascular notes. We will follow up. Saira Miles MD
[2018-02-16] MEDS: Amoxicillin-Clav 500-125 mg Tab PO SCH (05:42)
[2018-02-16 10:03] VITALS: BP 154/86; PULSE 74; RESP 20; TEMP 98.6; O2SAT 99
--- NOTE | 2018-02-17 04:33 | PN ---
DATE: 02/15/2018 SUBJECTIVE: Patient is a 62-year-old male. Patient was seen and examined on bedside on 02/15/2018, looks comfortable. No nausea, vomiting, diarrhea. No hematuria or hematochezia. No swelling of the legs. No chest pain. No palpitation. No headache. Still have dizziness. Rash is improving. PHYSICAL EXAMINATION: VITAL SIGNS: Temperature 98.2, pulse 65, respiratory rate 20, blood pressure 133/90, pulse oximetry 100. HEENT: Head normocephalic, atraumatic. Eyes, PERRLA. Extraocular muscles intact. Conjunctivae clear. Nose patent. Mucosus membrane moist. NECK: Supple, no carotid bruit. No JVD or thyromegaly. CHEST: Bilaterally symmetrical. HEART: S1, S2 positive. LUNGS: Clear to auscultation. ABDOMEN: Soft, bowel sounds present. No organomegaly. EXTREMITIES: No edema, no cyanosis. NEUROLOGICAL: Patient is awake, alert, moving all 4 extremities, no focal deficit. MEDICATIONS: Amlodipine, Augmentin, Ecotrin, Lipitor, Pepcid, , Antivert, Bactroban ointment. LABORATORY DATA: White blood cells 7.7, hemoglobin 12.1, hematocrit 34.6, platelets 283. Sodium 143, potassium 4.2, BUN 15, creatinine 1, glucose 88. ASSESSMENT AND PLAN: Mr. Miller Ceja is 62-year-old male with anemia, right-sided aphasia, Herpes Zoster clinically improving, vertigo challenges to be determined and looks like may be internal ear. Has carotid artery stenosis, hypertension, ulcerative colitis. Continue acyclovir day 8 of the 7 to 10 days of therapy. RPR and FTA antibodies are negative. Review Infectious Disease notes. Review Vascular specialist's notes and Dr. Malachi Chand's ENT notes also. Plan is to give a good physical therapy. Gastrointestinal and deep venous thrombosis prophylaxis. Repeat labs. We will follow up. Saira Miles MD
== END 2018-02-16 15:27 | disposition home or self-care (01) | DRG 74 ==
LOC: ED 13:34 → ERH 16:10 → OBSVTOIN 17:00 → 2RSO 17:58 → OBSVTOIN 02-06 21:58 → INTOOBSV 02-06 21:58 → 5RSO 02-10 17:30
PROVIDERS: ADMIT Internal Medicine; ATTEND Internal Medicine
DX: B02.29 Other postherpetic nervous system involvement (principal); K51.90 Ulcerative colitis, unspecified, without complications; R47.01 Aphasia; H83.2X1 Labyrinthine dysfunction, right ear; D50.9 Iron deficiency anemia, unspecified; F41.9 Anxiety disorder, unspecified; G40.909 Epilepsy, unspecified, not intractable, without status epilepticus; H90.41 Sensorineural hearing loss, unilateral, right ear, with unrestricted hearing on the contralateral side; I10 Essential (primary) hypertension; E87.8 Other disorders of electrolyte and fluid balance, not elsewhere classified; I65.23 Occlusion and stenosis of bilateral carotid arteries; I16.0 Hypertensive urgency; K58.9 Irritable bowel syndrome, unspecified; L98.9 Disorder of the skin and subcutaneous tissue, unspecified; Z79.899 Other long term (current) drug therapy; Z87.01 Personal history of pneumonia (recurrent)